=== PATIENT | female | born 1975 | race Caucasian/White ===

== ENCOUNTER 2020-05-18 11:06 | Outpatient (CLI) | payer BC, SELFPAY ==
[2020-05-18 12:36] LABS: SARS-CoV-2 Ag Negative (Negative)
== END 2020-05-18 11:07 | disposition home or self-care (01) ==
LOC: CHSLAB 11:09
PROVIDERS: PCP Internal Medicine; Visit Provider Internal Medicine
DX: Z20.828 Contact with and (suspected) exposure to other viral communicable diseases (principal)
CPT/HCPCS: 87426

== ENCOUNTER 2023-11-28 17:30 | Outpatient (CLI) | payer BC, SELFPAY ==
[2023-11-28 17:45] LABS: Hematocrit 30.5 % (35.0-49.0); Hemoglobin 8.9 g/dL (12.0-15.0); Immature Reticulocyte Fraction 28.4 % (2.0-16.52); Mean Corpuscular HGB Conc 29.2 g/dL (32-36); Mean Corpuscular Hemoglobin 20.9 pg (27.0-31.0); Mean Corpuscular Volume 71.8 fL (78.0-102.0); Mean Platelet Volume 9.3 fl (9.2-11.8); Platelet Count Result 245 K/mm3 (150-420); Red Blood Count 4.25 M/mm3 (4.20-5.40); Reticulocyte Hemoglobin Conten 19.6 pg (28.0-35.0); Reticulocyte Percent 1.67 % (0.50-1.50); Reticulocytes Absolute 0.07 M/mm3 (0.02-0.10)
[2023-11-28 18:46] LABS: Ferritin 5 ng/mL (8-252); Iron 11 ug/dL (50-170); Vitamin B12 581 pg/mL (193-986)
[2023-11-30 13:13] LABS: Red Blood Cell Folate 702 ng/mL RBC (>280)
== END 2023-11-28 17:31 | disposition home or self-care (01) ==
PROVIDERS: PCP Internal Medicine; Visit Provider Internal Medicine
DX: D64.9 Anemia, unspecified (principal)
CPT/HCPCS: 36415; 82607; 82728; 82747; 83540; 85027; 85046

== ENCOUNTER 2023-11-29 15:18 | Outpatient (CLI) | payer BC, SELFPAY ==
[2023-11-29 16:18] LABS: SPREG INTERNAL CONTROL Positive; Serum Qual hCG Negative
== END 2023-11-29 15:19 | disposition home or self-care (01) ==
LOC: CHSLAB 15:21
PROVIDERS: PCP Internal Medicine; Visit Provider Internal Medicine
DX: N91.2 Amenorrhea, unspecified (principal)
CPT/HCPCS: 36415; 84702; 84703

== ENCOUNTER 2023-12-05 13:24 | Outpatient (CLI) | payer BC, SELFPAY ==
[2023-12-05 13:42] LABS: Occult Blood Negative (Negative)
[2023-12-05 13:42] LABS: Occult Blood Negative (Negative)
[2023-12-05 13:42] LABS: Occult Blood Negative (Negative)
== END 2023-12-05 13:25 | disposition home or self-care (01) ==
PROVIDERS: PCP Internal Medicine; Visit Provider Internal Medicine
DX: D64.9 Anemia, unspecified (principal)
CPT/HCPCS: 82272

== ENCOUNTER 2023-12-08 12:51 | Outpatient (CLI) | payer BC, SELFPAY ==
[2023-12-08 13:03] LABS: Hemoglobin 9.6 g/dL (12.0-15.0)
== END 2023-12-08 12:52 | disposition home or self-care (01) ==
PROVIDERS: PCP Internal Medicine; Visit Provider Internal Medicine
DX: D64.9 Anemia, unspecified (principal)
CPT/HCPCS: 36415; 85014; 85018

== ENCOUNTER 2024-01-01 08:47 | Outpatient (CLI) | payer BC, SELFPAY ==
--- NOTE | 2024-01-01 08:55 | EST_ITS ---
Patient Info Name: Ivanna Kearney Age: 48 years : 1975 Gender: Female Ht: 65,229 in Wt: 229 lbs BSA: 34.54 m2 HR: 67 bpm BP: 119 / 92 mmHg Heart Rhythm: Sinus Rhythm Technical Quality: Good Exam Date: 01/01/2024 10:10 AM Exam Location: Echo Lab Patient Status: Outpatient Admit Date: 01/01/2024 Staff Ordering Physician: Tash Rangel MD Attending Provider: Jillian Vick NMAA Exam Type: CA stress shelbi w NM Study Info A treadmill exercise stress test was performed. History/Risk Factors Dyslipidemia: Yes Obesity: Yes Tobacco Use: Current - Every Day Summary 1. 1. Negative Aden exercise stress test for ischemic ST changes by ECG criteria. 2. 2. Reduced functional capacity, achieving 7 METs of workload. 3. 3. Appropriate HR response to exercise. 4. 4. Appropriate HR recovery at 1 minute post exercise. 5. 5. Nuclear scan to follow and will be reported separately. Please correlate with it. Protocol: Aden Stress ECG Details Stage: REST Duration (min): 0 min : 56 sec Speed (mph): 0.0 Grade (%): 0 HR (bpm): 65 SBP (mmHg): 119 DBP (mmHg): 92 METS: --- Stage: REST Duration (min): 4 min : 21 sec Speed (mph): 0.0 Grade (%): 0 HR (bpm): 72 SBP (mmHg): 119 DBP (mmHg): 92 METS: --- Stage: STAGE 1 Duration (min): 1 min : 0 sec Speed (mph): 1.7 Grade (%): 10 HR (bpm): 111 SBP (mmHg): 119 DBP (mmHg): 92 METS: --- Stage: STAGE 1 Duration (min): 2 min : 0 sec Speed (mph): 1.7 Grade (%): 10 HR (bpm): 120 SBP (mmHg): 119 DBP (mmHg): 92 METS: --- Stage: STAGE 1 Duration (min): 3 min : 0 sec Speed (mph): 1.7 Grade (%): 10 HR (bpm): 125 SBP (mmHg): 136 DBP (mmHg): 90 METS: --- Stage: STAGE 2 Duration (min): 1 min : 0 sec Speed (mph): 2.5 Grade (%): 12 HR (bpm): 134 SBP (mmHg): 136 DBP (mmHg): 90 METS: --- Stage: STAGE 2 Duration (min): 2 min : 0 sec Speed (mph): 2.5 Grade (%): 12 HR (bpm): 143 SBP (mmHg): 136 DBP (mmHg): 90 METS: --- Stage: STAGE 2 Duration (min): 3 min : 0 sec Speed (mph): 2.5 Grade (%): 12 HR (bpm): 149 SBP (mmHg): 164 DBP (mmHg): 96 METS: --- Stage: STAGE 2 Duration (min): 3 min : 30 sec Speed (mph): 2.5 Grade (%): 12 HR (bpm): 150 SBP (mmHg): 164 DBP (mmHg): 96 METS: --- Stage: RECOVERY Duration (min): 0 min : 29 sec Speed (mph): 0.0 Grade (%): 0 HR (bpm): 145 SBP (mmHg): 164 DBP (mmHg): 96 METS: --- Stage: RECOVERY Duration (min): 1 min : 29 sec Speed (mph): 0.0 Grade (%): 0 HR (bpm): 123 SBP (mmHg): 164 DBP (mmHg): 96 METS: --- Stage: RECOVERY Duration (min): 2 min : 29 sec Speed (mph): 0.0 Grade (%): 0 HR (bpm): 101 SBP (mmHg): 144 DBP (mmHg): 75 METS: --- Stage: RECOVERY Duration (min): 3 min : 29 sec Speed (mph): 0.0 Grade (%): 0 HR (bpm): 93 SBP (mmHg): 144 DBP (mmHg):
--- NOTE | 2024-01-04 19:11 | WPDCARIOSTRE ---
Nuclear Stress Test INDICATIONS Indications: Chest pain PROCEDURE Procedure Performed: Myocardial Perf Spect-Multi Procedure: Patient exercised on a standard Aden protocol and at peak exercise was injected with 30 mCi of cardiolyte. Multiple tomographic images were obtained. These are of good quality. There is evidence of a moderate size, moderate severity anterior perfusion defect with stress imaging. A separate resting images were obtained after patient was injected with 10 mCi of cardiolyte. Multiple tomographic images were obtained. There are of suboptimal quality. There is evidence of a moderate size, moderate severity anterior perfusion defect with rest imaging. CONCLUSION Conclusion: 1. Myocardial perfusion imaging demonstrating a fixed moderate size anterior perfusion defect suggestive of breast attenuation artifact. 2. No evidence of reversible ischemia. 3. Left ventriculogram demonstrates normal measured ejection fraction of 58% with no wall motion abnormalities. 4. TID score 0.82 is normal.
== END 2024-01-01 08:48 | disposition home or self-care (01) ==
LOC: CHSCARD 08:48
PROVIDERS: PCP Internal Medicine; Visit Provider Internal Medicine
DX: R07.9 Chest pain, unspecified (principal)
CPT/HCPCS: 78452; 93017; A9502

== ENCOUNTER 2024-01-04 14:22 | Outpatient (CLI) | payer BC, SELFPAY ==
--- NOTE | ~2024-01-04 | MM_ITS ---
EXAMINATION: MM screening presley BI w lito HISTORY: Screening TECHNIQUE: Craniocaudal and mediolateral oblique 3-D tomosynthesis images were obtained and synthetic 2-D images were generated. CAD analysis was submitted and interpreted. COMPARISON: No prior mammogram is available for comparison at this institution. BREAST PARENCHYMAL COMPOSITION: There are scattered areas of fibroglandular density. FINDINGS: There is no evidence of suspicious mass, calcification, or architectural distortion to sugg est malignancy in either breast. There has been no suspicious interval change. IMPRESSION: 1. No mammographic evidence of malignancy. 2. Recommend routine screening mammography in one year. BI-RADS Category 1: Negative Reviewed, dictated and finalized at location B.
== END 2024-01-04 14:23 | disposition home or self-care (01) ==
LOC: CHSIMG 14:23
PROVIDERS: PCP Internal Medicine; Visit Provider Internal Medicine
DX: Z12.31 Encounter for screening mammogram for malignant neoplasm of breast (principal)
CPT/HCPCS: 77063; 77067

== ENCOUNTER 2024-01-23 01:58 | Day surgery (SDC) | payer BC, SELFPAY ==
[2024-01-02 16:23] VITALS: BMI 38.9
[2024-01-23 08:51] VITALS: BP 131/88; PULSE 86; RESP 18; TEMP 36.4; O2SAT 97
[2024-01-23] MEDS: LACTATED RINGERS 1,000 ML 150 ML IV CONT (09:01)
--- NOTE | 2024-01-23 09:27 | WPDANESEPPF ---
Anes - Initial Pre Proc Eval Procedure: Operation Date: 01/23/24 10:00 Proposed Procedures p Esophagogastroduodenoscopy & Colonoscopy - Timo Lynch DO Date/Time: 01/23/24 09:27 Surgeon: Timo Lynch DO Pre Op Diagnosis: Severe iron deficient anemia likely do to GI loss Patient Data Age: 48 Gender: F Height: 1.64 m Weight: 101.6 kg Last Vital Signs Temp 36.4 C L 01/23/24 08:51 Pulse 86 01/23/24 08:51 Resp 18 01/23/24 08:51 BP 131/88 01/23/24 08:51 Pulse Ox 97 01/23/24 08:51 O2 Del Method Room Air 01/23/24 08:51 Allergies Allergy/AdvReac Type Severity Reaction Status Date / Time No Known Allergies Allergy Unknown Verified 01/23/24 08:50 Home Medications Medication Instructions Recorded Confirmed Type Vitamin D3 1 cap PO DAILY 01/02/24 01/02/24 History ascorbic acid (vitamin C) 1 gummy PO DAILY 01/02/24 01/02/24 History coQ10 (ubiquinol) 1 cap PO DAILY 01/02/24 01/02/24 History esomeprazole magnesium 40 mg 40 mg PO BID 01/02/24 01/02/24 History capsule,delayed release (Nexium) multivitamin 1 tablet PO DAILY 01/02/24 01/02/24 History rosuvastatin 40 mg tablet 40 mg PO HS 01/02/24 01/02/24 History trazodone 50 mg tablet 50 mg PO HS 01/02/24 01/02/24 History venlafaxine 150 mg 150 mg PO DAILY 01/02/24 01/02/24 History capsule,extended release 24 hr zinc 50 mg tablet 50 mg PO DAILY 01/02/24 01/02/24 History Patient hx anesthesia problems: none Family hx anesthesia problems: none Results Review: All pre-operative results and documents have been reviewed as part of the pre-operative evaluation. [facility] Family History Family History Mother Diabetes mellitus Hypertension Family history of elevated blood lipids Family history of mental disorder Depression Family history of diabetes mellitus in first degree relative Father Hypertension Family history of elevated blood lipids Other Family history of Alzheimer's disease Family history of allergic disorder Family history of malignant neoplasm Family history of peptic ulcer Social History Social History Smoking packs per day: 1 Smoking cigarettes per day: 20.0 Years smoked: 25 Smoking pack-years: 25.00 Smoking status: Current every day smoker Tobacco type: cigarettes Alcohol intake: never Substance use: never Substance use type: does not use Living arrangements: with family Spiritual care concerns: No Anes - Eval Final PreProcedure Day of Procedure 01/23/24 09:27 Patient weight: obese Heart: regular rate and rhythm Lungs: decreased breath sounds Airway: Mallampati scale class II Neurological: alert and oriented Last oral intake: >/= 8 hours ASA classification: III Emergent: no Anesthetic plan: proceed Anesthesia type and monitoring: general GIVS and standard monitoring Results Review: All pre-operative results and documents have been reviewed as part of the pre-operative evaluation. Informed Consent: The patient's anesthetic plan and its attendant risks and benefits were discussed with the patient/family/POA. Questions were solicited and answers provided to the satisfaction of the patient/family/POA.
--- NOTE | 2024-01-23 09:38 | PM.IMHP ---
H&P: HPI History of Present Illness Date/Time: 01/23/24 09:38 Chief Complaint: iron deficiency anemia Narrative: this is a 48-year-old woman who presents for EGD and colonoscopy. She has been having problems with iron deficiency anemia but source has been unknown. She denies any hematochezia or melena. She does have GERD and a hiatal hernia but does not notice any black stool or hematemesis. She did have a colonoscopy a few years ago which was normal. Review of Systems Review of Systems: All systems reviewed & are unremarkable except as noted in HPI and below Constitutional: Constitutional: Denies chills, Denies fever(s), Denies headache(s) and Denies weight loss Eyes: Eyes: Denies change in vision ENT: Denies dizziness, Denies headache(s), Denies neck mass and Denies throat swelling Cardiovascular: Cardiovascular: Denies chest pain, Denies lightheadedness and Denies dyspnea Respiratory: Respiratory: Denies cough, Denies dyspnea and Denies wheezing Gastrointestinal: Gastrointestinal: Denies abdominal pain, Denies change in bowel habits, Denies nausea and Denies vomiting Genitourinary: Genitourinary: Denies hematuria and Denies dysuria Musculoskeletal: Musculoskeletal: Reports as per HPI Integumentary/Breasts: Skin/Breast: Reports as per HPI Neurologic: Denies dizziness and Denies headache(s) Allergic/Immunologic: Allergic/Immunologic: Denies throat swelling and Denies wheezing PMFSH Family History Family History Mother Diabetes mellitus Hypertension Family history of elevated blood lipids Family history of mental disorder Depression Family history of diabetes mellitus in first degree relative Father Hypertension Family history of elevated blood lipids Other Family history of Alzheimer's disease Family history of allergic disorder Family history of malignant neoplasm Family history of peptic ulcer Social History Social History Smoking packs per day: 1 Smoking cigarettes per day: 20.0 Years smoked: 25 Smoking pack-years: 25.00 Smoking status: Current every day smoker Tobacco type: cigarettes Alcohol intake: never Substance use: never Substance use type: does not use Living arrangements: with family Spiritual care concerns: No Meds Home Medications and Allergies Home Medications Medication Instructions Recorded Confirmed Type Vitamin D3 1 cap PO DAILY 01/02/24 01/02/24 History ascorbic acid (vitamin C) 1 gummy PO DAILY 01/02/24 01/02/24 History coQ10 (ubiquinol) 1 cap PO DAILY 01/02/24 01/02/24 History esomeprazole magnesium 40 mg 40 mg PO BID 01/02/24 01/02/24 History capsule,delayed release (Nexium) multivitamin 1 tablet PO DAILY 01/02/24 01/02/24 History rosuvastatin 40 mg tablet 40 mg PO HS 01/02/24 01/02/24 History trazodone 50 mg tablet 50 mg PO HS 01/02/24 01/02/24 History venlafaxine 150 mg 150 mg PO DAILY 01/02/24 01/02/24 History capsule,extended release 24 hr zinc 50 mg tablet 50 mg PO DAILY 01/02/24 01/02/24 History Allergies Allergy/AdvReac Type Severity Reaction Status Date / Time No Known Allergies Allergy Unknown Verified 01/23/24 08:50 Vital Signs Vital Signs - 24 hr 01/23/24 08:51 Temperature 36.4 C L Pulse Rate 86 Respiratory Rate 18 Blood Pressure 131/88 Pulse Oximetry 97 Oxygen Delivery Room Air Exam Const: General: no acute distress and alert Orientation/consciousness: patient oriented x3 HENMT: Head: normocephalic and atraumatic Ears: hearing grossly normal bilaterally Face/Nose/Sinus: Normal nares present Mouth: Yes Normal oral and palatal mucosa present Eyes: Periorbital: periorbital findings normal Sclera: sclerae normal EOM: EOMs intact bilaterally Neck: Neck: normal visual inspection, no lymphadenopathy and trachea midline Chest: Chest palpation & inspection: normal inspect
--- NOTE | 2024-01-23 10:33 | SUR.OPER ---
EGD START TIME 1008, END TIME 1011. COLONOSCOPY START TIME 1018, END TIME 1032.
[2024-01-23 10:36] VITALS: BP 121/76; PULSE 77; RESP 22; O2SAT 92
[2024-01-23 10:46] VITALS: BP 125/81; PULSE 79; RESP 20; O2SAT 97
[2024-01-23 10:56] VITALS: BP 126/82; PULSE 77; RESP 22; O2SAT 97
== END 2024-01-23 11:09 | disposition home or self-care (01) ==
PROVIDERS: PCP Internal Medicine; Visit Provider Surgery
PROC: 0DJ08ZZ Inspection of Upper Intestinal Tract, Via Natural or Artificial Opening Endoscopic (ICD-10-PCS; CPT 43235; principal; 2024-01-23 10:00)
DX: D50.9 Iron deficiency anemia, unspecified (principal); K62.1 Rectal polyp; F17.210 Nicotine dependence, cigarettes, uncomplicated; E66.9 Obesity, unspecified; Z68.37 Body mass index [BMI] 37.0-37.9, adult; K44.9 Diaphragmatic hernia without obstruction or gangrene
CPT/HCPCS: 45380; 43235; 88305; J2704; J7120

== ENCOUNTER 2024-02-27 12:52 | Outpatient (CLI) | payer BC, SELFPAY ==
[2024-02-27 13:12] LABS: Basophils Absolute Auto 0.02 K/mm3 (0.00-0.10); Basophils Percent Auto 0.3 % (0.0-1.0); Eosinophils Absolute Auto 0.13 K/mm3 (0.02-0.50); Eosinophils Percent Auto 1.7 % (1.0-6.0); Hematocrit 37.9 % (35.0-49.0); Hemoglobin 11.9 g/dL (12.0-15.0); Immature Granulocyte Absolute 0.03 K/mm3 (0.00-0.00); Immature Granulocyte Percent A 0.4 % (0.0-0.0); Lymphocytes Absolute Auto 2.13 K/mm3 (1.10-4.50); Lymphocytes Percent Auto 27.1 % (18.0-42.0); Mean Corpuscular HGB Conc 31.4 g/dL (32-36); Mean Corpuscular Hemoglobin 25.2 pg (27.0-31.0); Mean Corpuscular Volume 80.3 fL (78.0-102.0); Mean Platelet Volume 9.9 fl (9.2-11.8); Monocytes Absolute Auto 0.61 K/mm3 (0.10-0.90); Monocytes Percent Auto 7.8 % (2.0-11.0); Neutrophils Absolute Auto 4.95 K/mm3 (1.70-7.20); Neutrophils Percent Auto 62.7 % (50.0-70.0); Platelet Count Result 210 K/mm3 (150-420); Red Blood Count 4.72 M/mm3 (4.20-5.40); Red Cell Distribution Width 22.3 % (11.6-14.4); White Blood Count 7.9 K/mm3 (4.8-10.8)
[2024-02-27 13:39] LABS: Ferritin 7 ng/mL (8-252); Iron 25 ug/dL (50-170)
== END 2024-02-27 12:53 | disposition home or self-care (01) ==
LOC: CHSLAB 12:55
PROVIDERS: PCP Internal Medicine; Visit Provider Internal Medicine
DX: D50.9 Iron deficiency anemia, unspecified (principal)
CPT/HCPCS: 36415; 82728; 83540; 85025

== ENCOUNTER 2024-03-08 08:56 | Outpatient (CLI) | payer BC, SELFPAY ==
[2024-03-08] MEDS: IRON SUCROSE COMPLEX 400 MG, IRON SUCROSE COMPLEX 100 MG in SODIUM CHLORIDE 0.9% IV 250 ML 62.5 MG IVPB (09:43)
[2024-03-08 16:16] VITALS: BP 126/78; PULSE 84; RESP 16; TEMP 36.5; O2SAT 96; BMI 38.7
== END 2024-03-08 08:57 | disposition home or self-care (01) ==
PROVIDERS: PCP Internal Medicine; Visit Provider Internal Medicine
DX: D50.9 Iron deficiency anemia, unspecified (principal)
CPT/HCPCS: 96365; 96366; J1756; J7050

== ENCOUNTER 2024-03-22 08:53 | Outpatient (CLI) | payer BC, SELFPAY ==
[2024-03-22] MEDS: IRON SUCROSE COMPLEX 500 MG in SODIUM CHLORIDE 0.9% IV 250 ML 62.5 MG IVPB (09:43)
[2024-03-22 09:45] VITALS: BP 134/78; PULSE 98; RESP 18; TEMP 36.4; O2SAT 97; BMI 38.7
== END 2024-03-22 08:54 | disposition home or self-care (01) ==
PROVIDERS: PCP Internal Medicine; Visit Provider Internal Medicine
DX: D50.9 Iron deficiency anemia, unspecified (principal)
CPT/HCPCS: 96365; 96366; J1756; J7050

== ENCOUNTER 2024-10-23 14:31 | Outpatient (CLI) | payer BC, SELFPAY ==
--- NOTE | ~2024-10-23 | US_ITS ---
EXAMINATION: US venous doppler [facility] DATE: 10/23/2024 15:01 INDICATION: Bilateral lower extremity edema TECHNIQUE: Grayscale ultrasound images without and with compression and Doppler ultrasound images of the bilateral lower extremity veins were obtained. COMPARISON: None. FINDINGS: The visualized portions of right common femoral vein, profunda (deep) femoral vein, femoral vein, pop liteal vein, peroneal veins, posterior tibial veins, and greater saphenous vein outflow are patent. Although not a dedicated reflux examination, significant reflux was incidentally noted of the right p opliteal vein measuring 3.3 seconds. The visualized portions of left common femoral vein, profunda femoral vein, femoral vein, popliteal v ein, peroneal veins, posterior tibial veins, and greater saphenous vein outflow are patent. IMPRESSION: 1. No deep venous thrombosis. Reviewed, dictated and finalized at location A.
--- OUTSIDE RECORDS SUMMARY | 2024-10-23 14:36 | XMS_ITS | Referral Summary ---
Author Organization [facility] Address [address] [place] [address] Care Team Providers Care Fashion Consultant Sales Name Role Phone Tash Rangel MD Primary Care Provider + [phone] Orion Soriano MD Unavailable [phone] Allergies No known active allergies Medications venlafaxine XR (EFFEXOR-XR) 75 mg 24 hr capsule Take 75 mg by mouth daily 8 Active rosuvastatin (CRESTOR) 40 mg tablet Take 40 mg by mouth daily. Active traMADoL (ULTRAM) 50 mg tablet Take 1 tablet (50 mg total) by mouth every 6 (six) hours as needed for pain 21 tablet 1 Active Additional Information Patient not taking.Reported on 06/21/[address] (NexIUM) 20 mg capsule Take 20 mg by mouth 2 (two) times a day Active famotidine (PEPCID) 40 mg tabletIndicatio ns:Laryngophary ngeal reflux (LPR) Take 1 tablet (40 mg total) by mouth nightly 90 tablet 3 1 Active Active Problems Problem Noted Date Diagnosed Date Seasonal allergic rhinitis due to pollen 021 Assessment & Plan (04/05/2021 3:25 PM CDT): Will obtain Dr. Dong notes Continue Nexium 20 mg twice daily Start Pepcid 40 mg at bedtime Referral to Sleep Medicine for Obstructive sleep apnea Nasal saline spray (Simply saline, Little Remedies, [place], [place]) 2 second sprays or 2 squeezes into each nostril while looking down over the sink, do not need to sniff in. Flonase 2 sprays into each nostril while looking down over the sink, do not sniff in or blow nose after use for at least 30 minutes BALJINDER (obstructive sleep apnea) 04/05/2021 Assessment & Plan (04/05/2021 3:33 PM CDT): Referral to Sleep Medicine for Obstructive sleep apnea Laryngopharyngeal reflux (LPR) 04/05/2021 Assessment & Plan (04/05/2021 3:33 PM CDT): Continue Nexium 20 mg twice daily Start Pepcid 40 mg at bedtime LPR discussed and Handout provided Abdominal pain 02/27/2021 Choledocholithiasis 02/25/2021 Overview (02/27/2021): Added automatically from request for surgery [id number] Social History Tobacco Use Types Packs/Day Years Used Date Smoking Tobacco: Heavy Smoker Cigarettes 0.5 20 Smokeless Tobacco: Never Tobacco Cessation:Counseling Given: No Comments:Smoking History Packs/day: 10 Cigarettes Alcohol Use Standard Drinks/Week Comments No 0 (1 standard drink = 0.6 oz pur e alcohol) AUDIT-C Answer Date Recorded Q1: How often do you have a drink containing alc ohol? Never 02/23/2021 Average Number of Drinks Not on file 021 Frequency of Binge Drinking Not on file 12/2020 Comments No Sex and Gender Information Value Date Recorded Sex Assigned at Not on file Legal Sex Female 11:44 AM VESSEL OPERATOR Gender Identity Not on file Sexual Orientation Not on file Last Filed Vital Signs Vital Sign Reading Time Taken Comments Blood Pressure 125/84 08/02/2021 1:51 PM VESSEL OPERATOR Pulse 82 08/02/2021 1:51 PM VESSEL OPERATOR Temperature 36.6 C (97.8 F) 08/02/2021 1:51 PM VESSEL OPERATOR Respiratory Rate 18 08/02/2021 1:51 PM VESSEL OPERATOR Oxygen Saturation 99% 08/02/2021 1:51 PM VESSEL OPERATOR Inhaled Oxygen Concentration - - Weight 98.9 kg (218 lb) 08/02/2021 1:51 PM VESSEL OPERATOR Height 165.1 cm (5' 5 ) 08/02/2021 1:51 PM VESSEL OPERATOR Body Mass Index 36.28 08/02/2021 1:51 PM VESSEL OPERATOR Plan of Treatment Not on file Medical Devices Implanted Type Area House Steward/Stewardess Device Identifier Shelf Expiration Date Model / Serial / Lot [employer] [id number] Cotton-Mares 8.5fr 7cm Taper Tip Guidewire Proximal Distal Flap - [id number] Implanted:Qty: 1 on 02/23/2021 by Orion Soriano MD at [facility] Stent N/A: Bile Duct [employer] 12/12/2023 [id number] / / [id number] Insurance [place] [place] [place] BLUE [employer] [facility] Advance Directives For more information, please contact: [phone] * Full Code (Latest Code Status on File) Date Activated Date Inactivated Comments 02/27/2021 10:11 AM 02/28/2021 8:20 PM * Full Code Date Activated Date Inactivated Comments 02/23/2021 9:59 AM 02/27/2021 4:41 AM * Full Code Date Activated Date Inactivated Comments 02/23/2021 9:59 AM 02/23/2021 9:59 AM Care Teams Fashion Consultant Sales Relationship Specialty Start Date End Date Tash Rangel MD [address] [place] [address] PCP - General 01/21/21 [place] [address] [place] [address] Consulting Physician Gastroenterology 02/28/21
--- OUTSIDE RECORDS SUMMARY | 2024-10-23 14:36 | XMS_ITS | Clinical Summary ---
Author Organization [facility] Address [address] [place] [address] Phone Care Team Providers Care Bank And Savings Securities Trader Name Role Phone Tash Rangel MD Primary Care Provider [phone] Allergies No known active allergies Medications atorvastatin (LIPITOR) 40 MG Tablet Take 40 mg by mouth daily. 1 7 Active ALPRAZolam (XANAX) 0.5 MG Tablet Take 1 Tab by mouth 3 times daily as needed. 15 Tab 7 Active Additional Information Patient not taking.Reported on 10/30/2021 rosuvastatin (CRESTOR) 40 MG Tablet Take 40 mg by mouth daily. Active venlafaxine (EFFEXOR-XR) 75 MG CAPSULE SR 24 HR Take 75 mg by mouth daily. Active Multiple Vitamins-Minera ls (MULTIVITAMIN PO) Take by mouth daily. Active Esomeprazole Magnesium (NEXIUM PO) Take by mouth. Act jerica predniSONE (DELTASONE) 10 MG TabletIndicatio ns:Bug bite, initial encounter Take 4 tab PO daily x 2 days, 3 tab PO daily x 2 days, 2 tab PO daily x 2 day, 1 tab PO daily x 2 days. 20 Tablet 2 Active Additional Information Patient not taking.Reported on 11/24/2021 amoxicillin-cla vulanate (AUGMENTIN) 875-125 MG Tablet TAKE 1 TABLET BY MOUTH EVERY 12 HOURS 2 Active Active Problems No known active problems Family History Medical History Relation Name Comments Heart Attack Father Hypertension Father Cancer Maternal Aunt breast Alzheimer's Disease Maternal Grandmother Diabetes Mother High Cholesterol Mother Hypertension Mother Cancer Paternal Grandfather possibl y throat Relation Name Status Comments Father Alive Maternal Aunt Maternal Grandmother Mother Alive Paternal Grandfather Son sensory neuro h earing loss, park larios Social History Tobacco Use Types Packs/Day Years Used Date Smoking Tobacco: Every Day Cigarettes 0.5 20 Smokeless Tobacco: Never Alcohol Use Standard Drinks/Week Comments No 0 (1 standard drink = 0.6 oz pur e alcohol) Sexually Active Control Partners Comments Not Currently Comments No Sex and Gender Information Value Date Recorded Sex Assigned at Not on file Legal Sex Female 10:03 PM CDT Gender Identity Not on file Sexual Orientation Not on file Occupation Industry Job Start Date Job End Date accounting Not on file Not on file Not on file Last Filed Vital Signs Vital Sign Reading Time Taken Comments Blood Pressure 124/82 11/24/2021 4:48 PM CDT Pulse 94 11/24/2021 4:48 PM CDT Temperature 37.1 C (98.8 F) 11/24/2021 4:48 PM CDT Respiratory Rate 13 11/24/2021 4:48 PM CDT Oxygen Saturation 96% 11/24/2021 4:48 PM CDT Inhaled Oxygen Concentration - - Weight 95.3 kg (210 lb) 10/30/2021 12:07 PM CDT Height 165.1 cm (5' 5 ) 08/23/2018 9:30 AM MIXER SLAGMAN Body Mass Index 34.95 08/23/2018 9:30 AM MIXER SLAGMAN Plan of Treatment Health Maintenance Due Date Last Done Comments Hepatitis C Virus (HCV) Screening 1975 Hepatitis B Immunization (1 of 3 - 19+ 3-dose series) 1992 Cologuard 2023 Immunochemical Fecal Occult Blood 2023 Pneumococcal Immunization (5 0+ years) (1 of 1 - PCV) 2023 Zoster Immunization (1 of 2) 2023 Influenza Immunization (#1) 02/18/202403/19, 05/17/2017 SARS-COV-2 Immunization (3 - 2023- season) 2024 02/03/2021, 01/06/2021 Colonoscopy 08/23/2028 08/23/2018 Colorectal Cancer Screening 08/23/2028 Respiratory Syncytial Virus (RSV) Immunization (Adult) (1 - 1-dose 75+ series) 2048 08/23/2018 DTaP/Tdap/Td Immunization Discontinued 07/06/2018 TdaP Immunization Completed 07/06/2018 Meningococcal Immunization (ACWY) Aged Out No longer eligible based on patient's age to complete this topic Rotavirus Immunization Aged Out No lo nger eligible based on patient's age to complete this topic Insurance [facility] Care Teams Bank And Savings Securities Trader Relationship Specialty Start Date End Date Tash Rangel MD [address] [place] [address] PCP - General Internal Medicine 04/29/17
--- OUTSIDE RECORDS SUMMARY | 2024-10-23 14:36 | XMS_ITS | Clinical Summary ---
Author Organization [facility] Address [address] [place] [address] Care Team Providers Care Art Gilder Name Role Phone Tash Rangel MD Primary Care Provider + [phone] Orion Soriano MD Unavailable [phone] Allergies No known active allergies Medications venlafaxine [...] Nasal saline spray (Simply saline, Little Remedies, [place], [place]) 2 second sprays or 2 squeezes into [...] (02/27/2021): Added automatically from request for surgery [id number] Surgical History Surgery Date Site/Laterality Comments OTHER SURGICAL HISTORY 06/19/2006 - 06/18/2007 spinal decompression OTHER SURGICAL HISTORY 06/19/2006 - 06/18/2007 lumbar fusion L5-S2 CERVICAL FUSION 06/19/2008 - 06/18/2009 cervical fusion OTHER SURGICAL HISTORY 06/19/1993 - 06/18/1994 : induced OTHER SURGICAL HISTORY 06/19/1993 - 06/18/1994 : 40 hr labor OTHER SURGICAL HISTORY 06/19/1995 - 06/18/1996 : 4 1/2 hr labor OTHER SURGICAL HISTORY 06/19/2002 - 06/18/2003 : ectopic CHOLECYSTECTOMY Cholecystectomy BRAIN SURGERY TUBAL LIGATION Medical History Medical History Date Comments Hx Other Medical 2002 ectopic pregnan cy Hx Other Medical 1993 ; Outc ome: Unknown sex Hx Other Medical 1993 ; Outc ome: 40 week 7 lb(s) 8 oz Male Hx Other Medical 1995 ; Outc ome: 40 week 7 lb(s) 1 oz Male Hx Other Medical 2002 ; Outc ome: Unknown sex Arnold-Chiari malformation (HCC) GERD (gastroesophageal reflux disease) Hyperlipidemia Hiatal hernia PONV (postoperative nausea and vomiting) Depression Family History Medical History Relation Name Comments Diabetes Mother Diabetes mellit us; Hyperlipidemia Mother Hyperlipidemi a; Hypertension Mother Hypertension; Cholecystitis Other Diabetes Other Hypertension Other Other Sister female or sexua l problems; Relation Name Status Comments Mother Other Sister Social History Tobacco Use Types Packs/Day Years [...] on file Legal Sex Female 11:44 AM PORTFOLIO MGR Gender Identity Not on file Sexual Orientation Not on file Obstetrics History Last Filed Vital Signs Vital Sign Reading Time Taken Comments Blood Pressure 125/84 08/02/2021 1:51 PM PORTFOLIO MGR Pulse 82 08/02/2021 1:51 PM PORTFOLIO MGR Temperature 36.6 C (97.8 F) 08/02/2021 1:51 PM PORTFOLIO MGR Respiratory Rate 18 08/02/2021 1:51 PM PORTFOLIO MGR Oxygen Saturation 99% 08/02/2021 1:51 PM PORTFOLIO MGR Inhaled Oxygen Concentration - - Weight 98.9 kg (218 lb) 08/02/2021 1:51 PM PORTFOLIO MGR Height 165.1 cm (5' 5 ) 08/02/2021 1:51 PM PORTFOLIO MGR Body Mass Index 36.28 08/02/2021 1:51 PM PORTFOLIO MGR Plan of Treatment Health Maintenance Due Date Last Done Comments Breast Cancer Screening-Mammogram 1975 Cervical Cancer Screening 1975 Colon Cancer Screening-Colonoscopy 1975 Depression Screening 1975 Hepatitis C Screening 1975 Hepatitis B Screening 1991 Regular Well Visit/Exam 18-64 1991 Pneumococcal vaccine <65 (1 of 2 - PCV) 1992 Zoster Vaccine (1 of 2) 2023 Influenza Vaccine (#1) 2024 04/03/2019, 2016 DTaP/Tdap/Td Vaccine (2 - Td or Tdap) 07/06/2028 01/ Medical Devices Implanted Type Area It Compliance Analyst Device Identifier Shelf Expiration Date Model / Serial / Lot [employer] [id number] Cotton-Mares 8.5fr 7cm Taper Tip Guidewire Proximal Distal Flap - [id number] Implanted:Qty: 1 on 02/23/2021 by Orion Soriano MD at [facility] Stent N/A: Bile Duct [employer] 12/12/2023 [id number] / / [id number] Insurance BLUE ACC[place] CHOICE [place] CHO[place] CHO[place] Advance Directives For more information, please contact: [phone] * Full Code (Latest Code Status on File) Date Activated Date Inactivated Comments 02/27/2021 10:11 AM 02/28/2021 8:20 PM * Full Code Date Activated Date Inactivated Comments 02/23/2021 9:59 AM 02/27/2021 4:41 AM * Full Code Date Activated Date Inactivated Comments 02/23/2021 9:59 AM 02/23/2021 9:59 AM Care Teams Art Gilder Relationship Specialty Start Date End Date Tash Rangel MD [address] [place] [address] PCP - General 01/21/21 [place] [address] [place] [address] Consulting Physician Gastroenterology 02/28/21
--- OUTSIDE RECORDS SUMMARY | 2024-10-23 14:36 | XMS_ITS | Patient Health Record ---
Author Organization [facility] Address [address] [place] [address] Care Team Providers Care Watch And Clock Maker And Repairer Name Role Phone Juan Carlos PEÑALOZA, Tash Primary Care Provider Kavon GRACE DRAFTER AUTOMOTIVE DESIGN LAYOUT, MEJIA Unavailable [phone] ALLERGIES No Known Allergies REASON FOR REFERRAL No Information MEDICATIONS Medication SIG (Take, Route, Frequency, Duration) Notes Start Date End Date Status Amitriptyline HCl 25 MG TAKE 1 TABLET BY MOUTH EVERYDAY AT BEDTIME for 90 Active LORazepam 2 MG/ML 1 ml as needed Orall y Twice a day Active NexIUM 20 MG 1 capsule Orally Onc e a day Active Rosuvastatin Calcium 10 MG 1 tablet Oral ly Once a day Active Effexor XR 75 MG 1 capsule with food Orally Once a day Active SOCIAL HISTORY Tobacco Use: Social History Observation Description Date Details (start date - stop date) Current Smoker NA - NA Sex Assigned At : Social History Observation Description Sex Assigned At Unknown Tobacco Use/Smoking Question Answer Notes Are you a current smoker How often do you smoke cigarettes? every day How many cigarettes a day do you smoke? 6-10 PLAN OF TREATMENT No Information Insurance Providers Payer Name Payer Address Payer Phone Subscriber Number Group Number Insured Name Patient Relationship to Insured Coverage Start Date Coverage End Date [facility] P[facility] [address] [place], [place] [phone] [id number] Ivanna Kearney Self - patient is the insured MEDICAL (GENERAL) HISTORY Medical History History ICD Code chiari malformation 1 anxietty depression GERD gallbladder dysfunction pancreatitis migraines hyperlipidemia Surgical History Surgery Date(Month/Year) laminectomy arnold chiari malformation decompression 2006 ERCP Anthony wtih biliary stenting 02/23 tubal ligation ectopic preg gallbladder removal 2018
--- OUTSIDE RECORDS SUMMARY | 2024-10-23 14:36 | XMS_ITS | Clinical Summary ---
Author Organization [facility] Address [facility] [address] [place] [address] Care Team Providers Care Reference Archivist Name Role Phone Unavailable Primary Care Provider Unavailabl e Social History Tobacco Use Types Packs/Day Years Used Date Smoking Tobacco: Never Assessed Comments Unknown Sex and Gender Information Value Date Recorded Sex Assigned at Not on file Legal Sex Female 5:06 PM CDT Gender Identity Not on file Sexual Orientation Not on file Plan of Treatment Health Maintenance Due Date Last Done Comments Cervical Cancer Screening Pa p Smear (Age 30 to 64) Every 3 Years 1973 Colorectal Cancer Screening Colonoscopy (10 Years) 1973 Annual Physical 1976 Hepatitis C 1991 DTaP, Tdap and Td Vaccines ( 1 - Tdap) 1992 Hepatitis B Vaccines (1 of 3 - 19+ 3-dose series) 1992 Cervical Cancer Screening Pa p with HPV Testing (Age 30 to 64) Every 5 Years 2003 Cervical Cancer Screening with HPV 2003 Mammogram Screening 2013 Pneumococcal Vaccine: 50+ Ye ars (1 of 1 - PCV) 2023 Zoster Vaccines (1 of 2) 2023 COVID-19 Vaccine ( - 2023-2 5 season) 2024 Meningococcal B Vaccine Aged Out No l onger eligible based on patient's age to complete this topic Meningococcal Vaccine Aged Out No kinsey rolando eligible based on patient's age to complete this topic RSV Immunizations Under 20 Months Aged Out No longer eligible based on patient's age to complete this topic
== END 2024-10-23 14:32 | disposition home or self-care (01) ==
PROVIDERS: PCP Internal Medicine; Visit Provider Internal Medicine
DX: M79.89 Other specified soft tissue disorders (principal)
CPT/HCPCS: 93970

== ENCOUNTER 2025-06-17 18:57 | Emergency (ER) | payer BC, SELFPAY ==
--- OUTSIDE RECORDS SUMMARY | 2025-06-17 18:59 | XMS_ITS ---
Author Organization [facility] Address [address] [place] [address] Phone Care Team Providers Care Torpedo Shooter Name Role Phone MISAEL SANTOS DO Unavailable [phone] Plan of Treatment Findings Encounter Date Ordered patient to call if jovanna cantu develops COVID SICK VISIT- ESTABLISHED PATIENT with LOIS N [facility] [employer] 06/14/2023 Last Documented On 3 10:47AM ; [facility] Ordered return to the clinic if condition worsens or new symptoms arise COVID SICK VISIT- ESTABLISHED PATIENT with LOIS N [facility] [employer] 06/14/2023 Last Documented On 3 10:47AM ; [facility] The options include close observation SI CK VISIT with MARCELA A [facility] 05/10/2020 Last Documented On 0 3:08PM ; [facility] Watch for signs/symptoms of infection, return to the clinic if seen SICK VISIT with MARCELA Saravia [facility] 05/10/2020 Last Documented On 0 3:08PM ; [facility] Ordered Clinical summary pro vided to patient ENDOMETRIAL BIOPSY with ROLAND HOOK RN ANA CRISTINA 11/21/2016 Last Documented On 7 8:39AM ; [facility] Ordered Clinical summary pro vided to patient NEW BLOGS MANAGER EXAM with ROLAND HOOK RN ANA CRISTINA 10/20/2016 Last Documented On 7 8:52AM ; [facility] Ordered weight loss diet NEW BLOGS MANAGER EXAM with ROLAND HOOK RN ANA CRISTINA 10/20/2016 Last Documented On 7 8:52AM ; [facility] Instructions to patient Watch for signs/symptoms of infection, return to the clinic if seen Last Documented On 0 3:02PM ; [facility] Instructed to call if excess jerica bleeding or abdominal/pelvic pain Last Documented On 7 8:18AM ; [facility] Patient may take Motrin OTC PRN as directed Last Documented On 7 8:18AM ; [facility] Instructions for patient ER if dizzy, vomiting or light-headed due to heavy bleeding Last Documented On 7 9:30AM ; [facility] Instructions for patient ER if bleeding through reg. sized pad/tampon < 1 hour Last Documented On 7 9:30AM ; [facility] Instructions for patient : p atient is to keep a menstrual diary to help with further evaluation and treatment Last Documented On 7 9:30AM ; [facility] Intervention and counseling on cessation of tobacco use Last Documented On 7 9:30AM ; [facility] Lose weight Last Documented On 7 8:58AM ; [facility] Instructed to call if excess jerica bleeding or abdominal/pelvic pain Last Documented On 7 8:58AM ; [facility] Instructions For Patient: Mo nthly Self Breast Exam Last Documented On 7 8:58AM ; [facility] Recommend diet and exercise at least 30 min three times per week Last Documented On 7 8:58AM ; [facility] Education and Decision Aids were provided during visit for: INFORMED CONSENT DISCUSSION: Endometrial biopsy was discussed in detail including discomfort, insufficient specimen with need to repeat test, and rare incidence of uterine perforation. Patient expressed understanding of the above and consented to the procedure Last Documented On 7 8:18AM ; [facility] Discussed smoking and drug u se Last Documented On 7 8:58AM ; [facility] Patient education about self -examination of breasts Last Documented On 7 9:30AM ; [facility] Patient Education: Daily patrick cium and vitamin D Last Documented On 7 8:58AM ; [facility] Assessments Includes: Assessments for all patient encounters Findings Encounter Date Acute sinusitis COVID SICK VISIT- ES TABLISHED PATIENT with LOIS Merida [facility] [employer] 06/14/2023 Last Documented On 3 10:47AM ; [facility] Assessment of cough COVID SICK VISIT- ES TABLISHED PATIENT with LOIS Merida [facility] [employer] 06/14/2023 Last Documented On 3 10:47AM ; [facility] Acute sinusitis SICK VISIT with MARCELA Saravia [facility] 05/10/2020 Last Documented On 0 3:08PM ; [facility] Exposure to a viral disease SICK VISIT with TRAC IE Manjit [facility] 05/10/2020 Last Documented On 0 3:08PM ; [facility] Benign endometrial hyperplasia PELVIC W/TVT with ROLAND HOOK RN ANA CRISTINA 04/18/2017 Last Documented On 7 1:03PM ; [facility] Endometrial hyperplasia CHART UPDATE with ROLAND HOOK RN ANA CRISTINA 11/23/2016 Last Documented On 7 2:59PM ; [facility] Postmenopausal bleeding CHART UPDATE with ROLAND HOOK RN ANA CRISTINA 11/23/2016 Last Documented On 7 2:59PM ; [facility] Endometrial hyperplasia ENDOMETRIAL BIOPSY with ROLAND HOOK RN ANA CRISTINA 11/21/2016 Last Documented On 7 8:39AM ; [facility] Postmenopausal bleeding ENDOMETRIAL BIOPSY with ROLAND HOOK RN ANA CRISTINA 11/21/2016 Last Documented On 7 8:39AM ; [facility] Mastodynia NEW BLOGS MANAGER EXAM with ROLAND HOOK RN ANA CRISTINA 10/20/2016 Last Documented On 7 8:52AM ; [facility] NORMAL FEMALE EXAM NEW BLOGS MANAGER EXAM with ROLAND CHEN RN ANA CRISTINA 10/20/2016 Last Documented On 7 8:52AM ; [facility] Postmenopausal bleeding NEW BLOGS MANAGER EXAM with ROLAND HOOK RN ANA CRISTINA 10/20/2016 Last Documented On 7 8:52AM ; [facility] Screen malignant neoplasm cervix NEW BLOGS MANAGER EXAM with ROLAND HOOK RN ANA CRISTINA 10/20/2016 Last Documented On 7 8:52AM ; [facility] Instructions Includes: Instructions for all patient encounters Instructions to patient Watch for signs/symptoms of infection, return to the clinic if seen Last Documented On 0 3:02PM ; [facility] Instructed to call if excess jerica bleeding or abdominal/pelvic pain Last Documented On 7 8:18AM ; [facility] Patient may take Motrin OTC PRN as directed Last Documented On 7 8:18AM ; [facility] Instructions for patient ER if dizzy, vomiting or light-headed due to heavy bleeding Last Documented On 7 9:30AM ; [facility] Instructions for patient ER if bleeding through reg. sized pad/tampon < 1 hour Last Documented On 7 9:30AM ; [facility] Instructions for patient : p atient is to keep a menstrual diary to help with further evaluation and treatment Last Documented On 7 9:30AM ; [facility] Intervention and counseling on cessation of tobacco use Last Documented On 7 9:30AM ; [facility] Lose weight Last Documented On 7 8:58AM ; [facility] Instructed to call if excess jeirca bleeding or abdominal/pelvic pain Last Documented On 7 8:58AM ; [facility] Instructions For Patient: Mo nthly Self Breast Exam Last Documented On 7 8:58AM ; [facility] Recommend diet and exercise at least 30 min three times per week Last Documented On 7 8:58AM ; [facility] Education and Decision Aids were provided during visit for: INFORMED CONSENT DISCUSSION: Endometrial biopsy was discussed in detail including discomfort, insufficient specimen with need to repeat test, and rare incidence of uterine perforation. Patient expressed understanding of the above and consented to the procedure Last Documented On 7 8:18AM ; [facility] Discussed smoking and drug u se Last Documented On 7 8:58AM ; [facility] Patient education about self -examination of breasts Last Documented On 7 9:30AM ; [facility] Patient Education: Daily patrick cium and vitamin D Last Documented On 7 8:58AM ; [facility] Medical Equipment - Implanted Devices Includes: Current and historical Devices No Medical Equipment Recorded Medications Includes: Current and historical Medications Current Medications (continue as prescribed) Amoxicillin-Pot Clavulanate 875-125 MG Oral Tablet 06/14/2023 Provider: LOIS CARRASCO Diagnosis: Acute sinusitis, unspecified One tablet twice a day Last Documented On 10:52AM By Lois CARRASCO ; [facility] traZODone HCl 50 MG Oral Tablet 05/25/2023 Provider: ELZBIETA PRINCE MD Diagnosis: Last Documented On 06/14/2023 10:27AM By Francy Castillo ; [facility] Venlafaxine HCl ER 150 MG Or al Capsule Extended Release 24 Hour 04/06/2023 Provider: ELZBIETA PRINCE MD Diagnosis: Last Documented On 06/14/2023 10:27AM By Farncy Castillo ; [facility] Atorvastatin Calcium 40MG Oral Tablet 10/20/2016 Pro vider: Diagnosis: Last Documented On 10/20/2016 8:39AM By YORDY NEGRON MA ; [facility] Lansoprazole 30MG Oral Capsule Delayed Release 017 Provider: Diagnosis: Last Documented On 10/20/2016 8:40AM By YORDY NEGRON MA ; [facility] Past Medications on file Doxycycline Hyclate 100 MG Oral Tablet 05/10/2020 - 06/14/2023 Provider: MARCELA CARRASCO Diagnosis: Acute frontal sinusitis, unspecified One tablet twice a day Last Documented On 3 10:44AM By Lois CARRASCO ; [facility] MedroxyPROGESTERone Acetate 10MG Oral Tablet 11/23/2016 - 01/22/2017 Provider: ROLAND TATE BC Diagnosis: Endometrial hyperplasia, unspecified One tablet daily ONE TAB DEBORAH LY FIRST 10 DAYS OF EACH MONTH WITH FOOD Last Documented On 7 3:00PM By ROLAND TATE-BC ; [facility] Medications Administered Includes: Administered Medications in patient's chart No Administered Medications Recorded Results Includes: Results from 06/17/2024 through 06/17/2025 No Results Recorded For Specified Dates History of Present Illness History of Present Illness not supported for this document type No History of Present Illness Recorded Social History Description Last Updated Current smoker 06/14/2023 Last Documented On 3 10:47AM ; [facility] No travel 05/10/2020 Last Documented On 0 3:08PM ; [facility] Personal history 11/21/2016 Last Documented On 7 8:39AM ; [facility] Sexually active 11/21/2016 Last Documented On 7 8:39AM ; [facility] Smoking Status Unknown Procedures and Surgical History Surgical History Last Updated History of tubal ligation 11/21/2016 Last Documented On 7 8:39AM ; [facility] Surgical / procedural histor y L5-S1 fusion ~C3-C4 fusion ~Arnold chiari decompression 10/20/2016 Last Documented On 7 8:52AM ; [facility] Medical History Includes: Medical History in patient's chart Description Last Updated Date COVID symptoms started: 06/09/2023 06/14/2023 Last Documented On 3 10:47AM ; [facility] No Contact with and (Suspected) exposure to COVID-19 06/14/2023 Last Documented On 3 10:47AM ; [facility] No fall 06/14/2023 Last Documented On 3 10:47AM ; [facility] Exposure to a contagious disease 020 Last Documented On 0 3:08PM ; [facility] Sexually active 11/21/2016 Last Documented On 7 8:39AM ; [facility] History of Pap smear done 10/20/2016 06/0 10/2016 Last Documented On 7 8:39AM ; [facility] LMP: 2015 11/21/2016 Last Documented On 7 8:39AM ; [facility] Result: abnormal (+)HPV 11/21/2016 Last Documented On 7 8:39AM ; [facility] History of chronic reflux esophagitis Last Documented On 7 8:52AM ; [facility] History of hyperlipidemia 10/20/2016 Last Documented On 7 8:52AM ; [facility] ACM type 1 10/20/2016 Last Documented On 7 8:52AM ; [facility] Aborta 2 10/20/2016 Last Documented On 7 8:52AM ; [facility] 4 10/20/2016 Last Documented On 7 8:52AM ; [facility] Para 2 10/20/2016 Last Documented On 7 8:52AM ; [facility] Status post tubal ligation 10/20/2016 Last Documented On 7 8:52AM ; [facility] Family History Includes: Family History in patient's chart Description Last Updated Maternal aunt's history of malignant fem adelina breast neoplasm Mat Aunt 10/20/2016 Last Documented On 7 8:52AM ; [facility] Maternal history of diabetes mellitus Mo ther and father 10/20/2016 Last Documented On 7 8:52AM ; [facility] Review of Systems Review of Systems not supported for this document type No Review of Systems Recorded Mental Status No Mental Status Recorded Functional Status No Functional Status Recorded Physical Exam Physical Exam not supported for this document type No Physical Exam Recorded Allergies Includes: Active, inactive, and resolved Allergies No Known Allergies Insurance Includes: Active Insurance Policies Plan Name Member ID Group # Subscriber Relationship Effect jerica Dates 1 - [facility] [id number] TERESA CALVIN Self Clinical Notes Includes: Signed Clinical Notes starting from 07/08/2022 No Clinical Notes Recorded
--- OUTSIDE RECORDS SUMMARY | 2025-06-17 18:59 | XMS_ITS | Clinical Summary ---
Author Organization [facility] Address [address] [place] [address] Phone Care Team Providers Care Oil Field Equipment Mechanic Supervisor Name Role Phone Tash Rangel MD Primary Care Provider [phone] Allergies No known active allergies Medications atorvastatin [...] 12:07 PM CDT Height 165.1 cm (5' 5) 08/23/2018 9:30 AM [employer] CONSULTANT Body Mass Index 34.95 08/23/2018 9:30 AM [employer] CONSULTANT Plan of Treatment Health Maintenance Due Date Last Done Comments Hepatitis C Virus (HCV) Screening 1973 Hepatitis B Immunization (1 of 3 - 19+ 3-dose series) 1992 Pap Smear 1994 Cervical Cancer Screening (CCS) 2003 HPV/Cotest 2003 Cologuard 2018 Immunochemical Fecal Occult Blood 2018 Pneumococcal Immunization (5 0+ years) (1 of 1 - PCV) 2023 Zoster Immunization (1 of 2) 2023 Influenza Immunization (#1) 02/17/202503/19, 05/17/2017 SARS-COV-2 Immunization (3 - 2024- season) 2025 02/03/2021, 01/06/2021 Colonoscopy 08/23/2028 08/23/2018 Colorectal Cancer Screening 08/23/2028 Respiratory Syncytial Virus (RSV) Immunization (Adult) (1 - 1-dose 75+ series) 2048 DTaP/Tdap/Td Immunization Discontinued 07/06/2018 TdaP Immunization Completed 07/06/2018 Human Papillomavirus (HPV) Immunization (No Doses Required) Completed Meningococcal Immunization (ACWY) Aged Out No longer eligible based on patient's age to complete this topic Rotavirus Immunization Aged Out No lo nger eligible based on patient's age to complete this topic Insurance [facility] Care Teams Oil Field Equipment Mechanic Supervisor Relationship Specialty Start Date End Date Tash Rangel MD [address] [place] [address] PCP - General Internal Medicine 04/29/17
--- OUTSIDE RECORDS SUMMARY | 2025-06-17 18:59 | XMS_ITS | Clinical Summary ---
Author Organization [facility] Address [address] [place] [address] Phone Care Team Providers Care Plating Tank Operator Name Role Phone MISAEL SANTOS DO Unavailable [phone] Reason for Visit and Chief Complaint The Chief Complaint is: monday pt started to have sore throat, low grade fever of 99.5, body aches,headache, left ear feels clogged and sinus pressure. states she has bad allergies. daughter- in- lawtested positive today and she was with her on monday Plan of Treatment - The options include close observation - Last Documented On 05/10/2020 3:08PM ; [facility] - Watch for signs/symptoms of infection, return to the clinic if seen - Last Documented On 05/10/2020 3:08PM ; [facility] Patient is to quarantine for 14 days past last exposure OTC medication for fever and/or bodyaches Call clinic for worsening symptoms or concerns Go to ED for severe difficulty breathing or lethargy Take medication as directed. Saline nasal spray to help with congestion. - Last Documented On 05/10/2020 3:08PM ; [facility] Instructions to patient Watch for signs/symptoms of infection, return to the clinic if seen Last Documented On 0 3:02PM ; [facility] Assessments Includes: Assessments from this encounter Findings - Exposure to a viral disease - Last Documented On 05/10/2020 3:08PM ; [facility] - Acute sinusitis - Last Documented On 05/10/2020 3:08PM ; [facility] Instructions Includes: Instructions from this encounter Instructions to patient Watch for signs/symptoms of infection, return to the clinic if seen Last Documented On 0 3:02PM ; [facility] Medical Equipment - Implanted Devices Includes: Current Devices No Medical Equipment Recorded Medications Includes: Medications discussed during this encounter and other current Medications New / Renewed during this visit MARCELA CARRASCO on 05/10/2020 Doxycycline Hyclate 100 MG Oral Tablet Provider: MARCELA Eckert 10 day supply: 20 tablet, 0 refills Diagnosis: Acute frontal sinusitis, unspecified One tablet twice a day Pharmacy: [address] [address] - Last Documented On 3 10:44AM By Lois CARRASCO ; [facility] Current Medications (continue as prescribed) Amoxicillin-Pot Clavulanate 875-125 MG Oral Tablet 06/14/2023 Provider: LOIS CARRASCO Diagnosis: Acute sinusitis, unspecified One tablet twice a day Last Documented On 3 10:52AM By Lois CARRASCO ; [facility] traZODone HCl 50 MG Oral Tablet 05/25/2023 Provider: ELZBIETA PRINCE MD Diagnosis: Last Documented On 06/14/2023 10:27AM By Francy Castillo ; [facility] Venlafaxine HCl ER 150 MG Or al Capsule Extended Release 24 Hour 04/06/2023 Provider: ELZBIETA PRINCE MD Diagnosis: Last Documented On 06/14/2023 10:27AM By Francy Castillo ; [facility] Atorvastatin Calcium 40MG Oral Tablet 10/20/2016 Pro vider: Diagnosis: Last Documented On 10/20/2016 8:39AM By YORDY NEGRON MA ; [facility] Lansoprazole 30MG Oral Capsule Delayed Release 017 Provider: Diagnosis: Last Documented On 10/20/2016 8:40AM By YORDY NEGRON MA ; [facility] Past Medications on file MedroxyPROGESTERone Acetate 10MG Oral Tablet 11/23/2016 - 01/22/2017 Provider: ROLAND TATE BC Diagnosis: Endometrial hyperplasia, unspecified One tablet daily ONE TAB DEBORAH LY FIRST 10 DAYS OF EACH MONTH WITH FOOD Last Documented On 7 3:00PM [facility] ; [facility] Medications Administered Includes: Administered Medications from this encounter No Administered Medications Recorded Vital Signs Includes: Vital Signs from this encounter Vital Name 05/10/2020 02:48P Pulse Rate-Sitting (bpm) 94 Temp-Oral (F) 98.4 Oxygen Saturation (%) 96 Last Documented: On 05/10/2020 2:50PM ; [facility] Results Includes: Results discussed during this encounter Rapid COVID Test [facility] Ordered by MARCELA CARRASCO on Collected: Reported: 05/10/2020 14:55 Last Documented On 0 2:56PM ; [facility] Reviewed on 05/10/2020; All test results are final unless otherwise noted. Rapid COVId neg N (Normal) Last Documented On 0 2:55PM ; [facility] Int. QC Acceptable yes N (Normal) Last Documented On 0 2:55PM ; [facility] Lot # and Exp. Date [id number] 09/03/20 N (Normal) Last Documented On 0 2:55PM ; [facility] History of Present Illness Includes: History of Present Illness from this encounter SYLVIA CALVIN is a 45 year old female. Source of patient information was patient ? Allergy list reviewed ? Medication reconciliation performed - Not feeling fine - Feeling tired - Feeling poorly (malaise) - Fever - No chills - Headache - Facial pain - Sinus pain - Swollen glands in the neck on the left side - Painful - No eye symptoms - The ears feel pressured on the left - Nasal discharge - Nasal passage blockage (stuffiness) - Sore throat comes and goes - The ears do not feel pressured - No sneezing - No chest pain or discomfort - No palpitations - No dyspnea - No cough - No wheezing - Decreased appetite - No nausea - No vomiting - No abdominal pain - No diarrhea - No increase in urinary frequency - Myalgias - No dizziness - No skin symptoms Denies any recent travel. Pt presents to the clinic with complaints of stuffy nose, sinus pressure, runny nose, sore throat, fever, body aches, and navarro. PT states that her sx started on Monday. Pt states that she found out today that her future daughter in law tested positive today and she was most recently around her on monday. Pt states that she also has ear pressure. Pt denies SOB or wheezing. Social History Description Last Updated No travel 05/10/2020 Last Documented On 0 3:08PM ; [facility] Smoking Status Unknown Medical History Includes: Medical History addressed during this encounter Description Last Updated Exposure to a contagious disease 020 Last Documented On 0 3:08PM ; [facility] Family History Includes: Family History addressed during this encounter No Family History Recorded Review of Systems Includes: Review of Systems from this encounter No Review of Systems Recorded Mental Status Includes: Mental Status from this encounter No Mental Status Recorded Functional Status Includes: Functional Status from this encounter No Functional Status Recorded Physical Exam Includes: Physical Exam from this encounter Allergies Includes: Active Allergies No Known Allergies Encounters Encounter Provider Location Date Check-In Time Check-Out Time Diagnosis SICK VISIT MARCELA CEDILLO CREW BOAT OPERATOR-C [facility] 0 2:15PM 3:01PM Exposure To Contagious Viral Disease,Sinusi tis Acute Insurance Includes: Active Insurance Policies Plan Name Member ID Group # Subscriber Relationship Effect jerica Dates 1 - [facility] [id number] TERESA CALVIN Self Clinical Notes Includes: Clinical Notes from this encounter No Clinical Notes Recorded
--- OUTSIDE RECORDS SUMMARY | 2025-06-17 18:59 | XMS_ITS | Clinical Summary ---
Author Organization [facility] Address [address] [place] [address] Phone Care Team Providers Care Lifeguard Name Role Phone MISAEL SANTOS DO Unavailable [phone] Reason for Visit and Chief Complaint PELVIC W/TVT Plan of Treatment No Plan of Treatment Recorded Assessments Includes: Assessments from this encounter Findings - Benign endometrial hyperplasia - Last Documented On 04/19/2017 1:03PM ; [facility] Medical Equipment - Implanted Devices Includes: Current Devices No Medical Equipment Recorded Medications Includes: Medications discussed during this encounter and other current Medications Current Medications (continue as prescribed) Amoxicillin-Pot Clavulanate 875-125 MG Oral Tablet 06/14/2023 Provider: LOIS CARRASCO Diagnosis: Acute sinusitis, unspecified One tablet twice a day Last Documented On 10:52AM By Lois CARRASCO ; [facility] traZODone HCl 50 MG Oral Tablet 05/25/2023 Provider: ELZBIETA PRINCE MD Diagnosis: Last Documented On 06/14/2023 10:27AM By Francy Castillo ; [facility] Venlafaxine HCl ER 150 MG Or al Capsule Extended Release 24 Hour 04/06/2023 Provider: ELZBIETA PRINCE MD Diagnosis: Last Documented On 06/14/2023 10:27AM By Francy Castillo ; [facility] Atorvastatin Calcium 40MG Oral Tablet 10/20/2016 Pro vider: Diagnosis: Last Documented On 10/20/2016 8:39AM By YORDY NEGRON MA ; [facility] Lansoprazole 30MG Oral Capsule Delayed Release 017 Provider: Diagnosis: Last Documented On 10/20/2016 8:40AM By YORDY NEGRON MA ; [facility] Past Medications on file MedroxyPROGESTERone Acetate 10MG Oral Tablet 11/23/2016 - 01/22/2017 Provider: ROLAND BRUNO Diagnosis: Endometrial hyperplasia, unspecified One tablet daily ONE TAB DEBORAH LY FIRST 10 DAYS OF EACH MONTH WITH FOOD Last Documented On 7 3:00PM By ROLAND TATE-DAMION ; [facility] Medications Administered Includes: Administered Medications from this encounter No Administered Medications Recorded Results Includes: Results discussed during this encounter [facility]. Ordered by ROLAND BRUNO on 0 10/20/2016 Collected: 10/20/2016 Reported: 10/26/19 17 16:52 Last Documented On 7 8:16AM ; [facility] Reviewed by ROLAND BRUNO on 10/26/2016; All test results are final unless otherwise noted. FSH 45.0 mIU/mL N (Normal) Last Documented On 10/26/2016 8:16AM ; [facility] Note: Reference Range Follicular Phase 2.5-10.2 Mid-cycle Peak 3.1-17.7 Luteal Phase 1.5- 9.1 Postmenopausal 23.0-116.3 History of Present Illness Includes: History of Present Illness from this encounter No History of Present Illness Recorded Social History No Social History Recorded - Smoking Status Unknown Procedures and Surgical History Surgical History Last Updated History of tubal ligation 11/21/2016 Last Documented On 7 12:55PM ; [facility] Surgical / procedural histor y L5-S1 fusion ~C3-C4 fusion ~Arnold chiari decompression 10/20/2016 Last Documented On 7 12:55PM ; [facility] Medical History Includes: Medical History addressed during this encounter Description Last Updated Sexually active 11/21/2016 Last Documented On 7 12:55PM ; [facility] History of Pap smear done 10/20/2016 06/0 10/2016 Last Documented On 7 12:55PM ; [facility] LMP: 201411/21/2016 Last Documented On 7 12:55PM ; [facility] Result: abnormal (+)HPV 11/21/2016 Last Documented On 7 12:55PM ; [facility] History of chronic reflux esophagitis Last Documented On 7 12:55PM ; [facility] History of hyperlipidemia 10/20/2016 Last Documented On 7 12:55PM ; [facility] ACM type 1 10/20/2016 Last Documented On 7 12:55PM ; [facility] Aborta 2 10/20/2016 Last Documented On 7 12:55PM ; [facility] 4 10/20/2016 Last Documented On 7 12:55PM ; [facility] Para 2 10/20/2016 Last Documented On 7 12:55PM ; [facility] Status post tubal ligation 10/20/2016 Last Documented On 7 12:55PM ; [facility] Family History Includes: Family History addressed during this encounter Description Last Updated Maternal aunt's history of malignant fem adelina breast neoplasm Mat Aunt 10/20/2016 Last Documented On 7 12:55PM ; [facility] Maternal history of diabetes mellitus Mo ther and father 10/20/2016 Last Documented On 7 12:55PM ; [facility] Review of Systems Includes: Review of Systems from this encounter No Review of Systems Recorded Mental Status Includes: Mental Status from this encounter No Mental Status Recorded Functional Status Includes: Functional Status from this encounter No Functional Status Recorded Physical Exam Includes: Physical Exam from this encounter No Physical Exam Recorded Allergies Includes: Active Allergies No Known Allergies Encounters Encounter Provider Location Date Check-In Time Check-Out Time Diagnosis PELVIC W/TVT ROLAND HOOK RN WHNP [facility] RASCHEL KNITTING MACHINE OPERATOR 04/18/20 17 8:14AM 8:53AM Endometrial Hyperplasia - Benign Insurance Includes: Active Insurance Policies Plan Name Member ID Group # Subscriber Relationship Effect jerica Dates 1 - [facility] [id number] TERESA CALVIN Self Clinical Notes Includes: Clinical Notes from this encounter No Clinical Notes Recorded
--- OUTSIDE RECORDS SUMMARY | 2025-06-17 18:59 | XMS_ITS ---
Care Plan - [facility] Created on: June 17, 2025 TERESA CALVIN : 1975 Sex: Female Author Organization [facility] Address [address] [place] [address] Phone Care Team Providers Care Child Day Care Teacher Name Role Phone MISAEL SANTOS DO Unavailable [phone]
--- OUTSIDE RECORDS SUMMARY | 2025-06-17 18:59 | XMS_ITS | Clinical Summary ---
Author Organization [facility] Address [address] [place] [address] Phone Care Team Providers Care Tempering Oven Operator Name Role Phone MISAEL SANTOS DO Unavailable [phone] Reason for Visit and Chief Complaint [Patient Encounter] Plan of Treatment No Plan of Treatment Recorded Assessments Includes: Assessments from this encounter No Assessments Recorded Medical Equipment - Implanted Devices Includes: Current Devices No Medical Equipment Recorded Medications Includes: Medications discussed during this encounter and other current Medications Current Medications (continue as prescribed) Amoxicillin-Pot Clavulanate 875-125 MG Oral Tablet 06/14/2023 Provider: LOIS CARRASCO Diagnosis: Acute sinusitis, unspecified One tablet twice a day Last Documented On 10:52AM By Lois CARRASCO ; [facility] traZODone HCl 50 MG Oral Tablet 05/25/2023 Provider: ELZBEITA PRINCE MD Diagnosis: Last Documented On 06/14/2023 10:27AM By Francy Castillo ; [facility] Venlafaxine HCl ER 150 MG Or al Capsule Extended Release 24 Hour 04/06/2023 Provider: ELZBIETA PRINCE MD Diagnosis: Last Documented On 06/14/2023 10:27AM By Francy Castillo ; [facility] Atorvastatin Calcium 40MG Oral Tablet 10/20/2016 Pro vider: Diagnosis: Last Documented On 10/20/2016 8:39AM By YORDY NEGRON MA ; [facility] Lansoprazole 30MG Oral Capsule Delayed Release 017 Provider: Diagnosis: Last Documented On 10/20/2016 8:40AM By YORDY NEGRON MA ; [facility] Medications Administered Includes: Administered Medications from this encounter No Administered Medications Recorded Results Includes: Results discussed during this encounter No Results Recorded For Specified Dates History of Present Illness Includes: History of Present Illness from this encounter No History of Present Illness Recorded Social History No Social History Recorded - Smoking Status Unknown Medical History Includes: Medical History addressed during this encounter No Medical History Recorded Family History Includes: Family History addressed during [...] Encounters Encounter Provider Location Date Check-In Time Check- Out Time Diagnosis [Patient Encounter] ROLAND HOOK RN ANA CRISTINA [facility] RN OBGYN 8 3:46PM 11:59PM Insurance Includes: Active Insurance Policies Plan Name Member ID Group # Subscriber Relationship Effect jerica Dates 1 - [facility] [id number] TERESA CALVIN Self Clinical Notes Includes: Clinical Notes from this encounter No Clinical Notes Recorded
--- OUTSIDE RECORDS SUMMARY | 2025-06-17 19:00 | XMS_ITS | Patient Health Record ---
Author Organization [facility] Address [address] [place] [address] Care Team Providers Care Awake Overnight Counselor Name Role Phone Juan Carlos PEÑALOZA, Tash Primary Care Provider Kavon GRACE PATHOLOGY LAB TECHNICIAN, MEJIA Unavailable [phone] Allergies No Known Allergies Reason For Referral No Information Medications Medication SIG (Take, Route, Frequency, Duration) Notes Start Date End Date Status Amitriptyline HCl 25 MG TAKE 1 TABLET BY MOUTH EVERYDAY AT BEDTIME; Duration: 90 Active LORazepam 2 MG/ML 1 ml as needed Orall y Twice a day Active NexIUM 20 MG 1 capsule Orally Onc e a day Active Rosuvastatin Calcium 10 MG 1 tablet Oral ly Once a day Active Effexor XR 75 MG 1 capsule with food Orally Once a day Active Social History Tobacco Use: Social History Observation Description Date Details (start date - stop date) Current Smoker NA - NA Tobacco Use/Smoking Question Answer Notes Are you a current smoker How often do you smoke cigarettes? every day How many cigarettes a day do you smoke? 6-10 Plan Of Treatment No Information Insurance Providers Payer Name Payer Address Payer Phone Subscriber Number Group Number Insured Name Patient Relationship to Insured Coverage Start Date Coverage End Date [facility] PPO [address] [place], [place] [id number] Ivanna Kearney Self - patient is the insured Medical (General) History Medical History History ICD Code chiari malformation 1 anxietty depression GERD gallbladder dysfunction pancreatitis migraines hyperlipidemia Surgical History Surgery Date(Month/Year) laminectomy arnold chiari malformation decompression 2006 ERCP Anthony wtih biliary stenting 02/23 tubal ligation ectopic preg gallbladder removal 2018
--- OUTSIDE RECORDS SUMMARY | 2025-06-17 19:00 | XMS_ITS | Clinical Summary ---
Author Organization [facility] Address [facility] [place] [address] Care Team Providers Care Boiler Control Technician Name Role Phone Unavailable Primary Care Provider [...] of 2) 2023 COVID-19 Vaccine ( - 2024-2 6 season) 2025 Influenza Adult (#1) 2025 Hepatitis A Vaccines Aged Out No long er eligible based on patient's age to complete this topic Meningococcal B Vaccine Aged Out No l onger eligible based on patient's age to complete this topic Meningococcal Vaccine Aged Out No kinsey rolando eligible based on patient's age to complete this topic RSV Immunizations Under 20 Months Aged Out No longer eligible based on patient's age to complete this topic
--- OUTSIDE RECORDS SUMMARY | 2025-06-17 19:00 | XMS_ITS | Clinical Summary ---
Author Organization [facility] Address [address] [place] [address] Phone Care Team Providers Care Grocery Shopper Name Role Phone MISAEL SANTOS DO Unavailable [phone] Reason for Visit and Chief Complaint The Chief Complaint is: Sinus issues. back pain eye drainage. FOR ABOUT A WEEK WITH CONGESTION, COUGH, DRAINAGE IN BACK OF THROAT, SOB, HEADACHE, RUNNY NOSE Plan of Treatment - Return to the clinic if condition worsens or new symptoms arise - Last Documented On 06/14/2023 10:47AM ; [facility] - Patient to call if problem develops - Last Documented On 06/14/2023 10:47AM ; [facility] Assessments Includes: Assessments from this encounter Findings - Cough [R05.1 - Acute cough] - Last Documented On 06/14/2023 10:47AM ; [facility] - Acute sinusitis [J01.90 - Acute sinusitis, unspecified] - Last Documented On 06/14/2023 10:47AM ; [facility] Medical Equipment - Implanted Devices Includes: Current Devices No Medical Equipment Recorded Medications Includes: Medications discussed during this encounter and other current Medications Discontinued / Stopped on this date MARCELA CARRASCO on 05/10/2020 Doxycycline Hyclate 100 MG Oral Tablet Provider: MARCELA Eckert Diagnosis: Acute frontal si nusitis, unspecified Last Documented On 10:44AM By Lois CARRASCO ; [facility] New / Renewed during this visit LOIS CARRASCO on 06/14/2023 Amoxicillin-Pot Clavulanate 875-125 MG Oral Tablet Provider: LOIS EUBANKS-C 10 day supply: 20 tablet, 0 refills Diagnosis: Acute sinusitis, unspecified One tablet twice a day Pharmacy: [address], [address] - Last Documented On 10:52AM By Lois CARRASCO ; [facility] Current Medications (continue as prescribed) traZODone HCl 50 MG Oral Tablet 05/25/2023 Provider: ELZBIETA PRINCE MD Diagnosis: Last Documented On 06/14/2023 10:27AM By Francy Castillo ; [facility] Venlafaxine HCl ER 150 MG Or al Capsule Extended Release 24 Hour 04/06/2023 Provider: ELZBIETA PRINCE MD Diagnosis: Last Documented On 06/14/2023 10:27AM By Francy Castillo ; [facility] Atorvastatin Calcium 40MG Oral Tablet 10/20/2016 Pro vider: Diagnosis: Last Documented On 10/20/2016 8:39AM By YORDY NEGRON MA ; [facility] Lansoprazole 30MG Oral Capsule Delayed Release 017 Provider: Diagnosis: Last Documented On 10/20/2016 8:40AM By YORDY NEGRON MA ; [facility] Past Medications on file MedroxyPROGESTERone Acetate 10MG Oral Tablet 11/23/2016 - 01/22/2017 Provider: ROLAND HOOK RN ANA CRISTINA Diagnosis: Endometrial hyperplasia, unspecified One tablet daily ONE TAB DEBORAH LY FIRST 10 DAYS OF EACH MONTH WITH FOOD Last Documented On 7 3:00PM By ROLAND HOOK ANA CRISTINA- ; [facility] Medications Administered Includes: Administered Medications from this encounter No Administered Medications Recorded Vital Signs Includes: Vital Signs from this encounter Vital Name 06/14/2023 10:29A Pulse Rate-Sitting (bpm) 75 Respiration Rate (breaths/min) 21 Temp-Oral (F) 98.2 Height (in) 64.75 Weight (lb) 230.375 Body Mass Index 38.6 Body Surface Area 2.1 Oxygen Saturation (%) 98 Last Documented: On 06/14/2023 10:30A M ; [facility] Results Includes: Results discussed during this encounter SARS COVID-19 FLU A & B [facility] Ordered by LOIS EUBANKS-Maryann on 08/15/2022 Collected: Reported: 06/14/2023 Last Documented On 3 10:45AM ; [facility] Reviewed on 06/14/2023; All test results are final unless otherwise noted. COVID NEG N (Normal) Last Documented On 3 10:45AM ; [facility] INFLUENZA A NEG (Negative) N (Normal) Last Documented On 3 10:45AM ; [facility] INFLUENZA B NEG (negative) N (Normal) Last Documented On 3 10:45AM ; [facility] INT. QC ACCEPTABLE? YES N (Normal) Last Documented On 3 10:45AM ; [facility] LOT # & EXP. DATE [id number] 04-19-24 N (Normal) Last Documented On 3 10:45AM ; [facility] History of Present Illness Includes: History of Present Illness from this encounter SYLVIA CALVIN is a 48 year old female. - Allergy list reviewed - Medication list reviewed - Medication list reviewed - Feeling poorly (malaise) - No fever - Headache - Sinus pain - Pain in the cheek - No eye symptoms - The ears feel full - Nasal discharge - Postnasal drip - Nasal passage blockage (stuffiness) - No sneezing - No sore throat - Feeling congested in the chest - Cough - No dyspnea - No wheezing - Appetite not decreased - No nausea - No vomiting - No diarrhea Teresa is here with symptoms x 1 week. Social History Description Last Updated Current smoker 06/14/2023 Last Documented On 3 10:47AM ; [facility] Smoking Status Unknown Procedures and Surgical History Includes: Procedures from this encounter Procedures Code Diagnosis Performing Provider Service L ocation Service Date the options include decongestants Last Documented On 3 10:47AM ; [facility] the options include antihist amines such as claritin/zyrtec/josefina as needed per product instructions Last Documented On 3 10:43AM ; [facility] plan of care reviewed and agreed to Last Documented On 3 10:43AM ; [facility] patient to call if symptoms worsen or not improved in 5-7 days to update patient's status Last Documented On 3 10:43AM ; [facility] use of tobacco assessment performed 1000F Last Documented On 3 10:29AM ; [facility] review of medications documented 1160F Last Documented On 3 10:29AM ; [facility] Clinical summary provided to patient Last Documented On 3 10:43AM ; [facility] Medical History Includes: Medical History addressed during this encounter Description Last Updated Date COVID symptoms started: 06/09/2023 06/14/2023 Last Documented On 3 10:47AM ; [facility] No Contact with and (Suspected) exposure to COVID-19 06/14/2023 Last Documented On 3 10:47AM ; [facility] No fall 06/14/2023 Last Documented On 3 10:47AM ; [facility] Family History Includes: Family History addressed during this encounter No Family History Recorded Review of Systems Includes: Review of Systems from this encounter Systemic: No fever. Head: Headache. Eyes: No eye symptoms. Otolaryngeal: No earache. Nasal discharge. No sore throat. Cardiovascular: No cardiovascular symptoms. Chest pain or discomfort. Pulmonary: Cough. No wheezing. Gastrointestinal: No vomiting, no abdominal pain, and no diarrhea. Musculoskeletal: No musculoskeletal symptoms. Skin: No skin symptoms. 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 [facility] 06/14/20 23 10:19AM 10:42AM Sinusitis Acute,Assessm ent of Cough Insurance Includes: Active Insurance Policies Plan Name Member ID Group # Subscriber Relationship Effect jerica Dates 1 - [facility] [id number] TERESA Missael CALVIN Self Clinical Notes Includes: Clinical Notes from this encounter * Progress note Date Encounter Last Documented by 06/14/2023 COVID SICK VISIT- ESTABLISHED JOSE ALEJANDRO OCHOA Last documented on 06/14/2023; 10:47 AM, LOIS LOERA [employer] WORKER-C; [facility] Chief Complaint The Chief Complaint is: Sinus issues. back pain eye drainage. FOR ABOUT A WEEK WITH CONGESTION, COUGH, DRAINAGE IN BACK OF THROAT, SOB, HEADACHE, RUNNY NOSE. History of Present Illness TERESA CALVIN is a 48 year old female. - Allergy list reviewed - Medication list reviewed - Medication list reviewed - Feeling poorly (malaise) - No fever - Headache - Sinus pain - Pain in the cheek - No eye symptoms - The ears feel full - Nasal discharge - Postnasal drip - Nasal passage blockage (stuffiness) - No sneezing - No sore throat - Feeling congested in the chest - Cough - No dyspnea - No wheezing - Appetite not decreased - No nausea - No vomiting - No diarrhea Teresa is here with symptoms x 1 week. Current Medication - Atorvastatin Calcium 40MG Oral Tablet 40 MG One tablet daily 0 days, 0 refills - Lansoprazole 30MG Oral Capsule Delayed Release 30 MG One tablet twice a day 0 days, 0 refills - traZODone HCl 50 MG Oral Tablet 90 days, 0 refills - Venlafaxine HCl ER 150 MG Oral Capsule Extended Release 24 Hour 90 days, 0 refills Past Medical/Surgical History Reported: Exposure: No Contact with and (Suspected) exposure to COVID-19. Date COVID symptoms started: 06/09/2023. Physical Trauma: No fall. Social History Tobacco use: Current smoker. Allergies - No Known Allergies Review Of Systems Systemic: No fever. Head: Headache. Eyes: No eye symptoms. Otolaryngeal: No earache. Nasal discharge. No sore throat. Cardiovascular: No cardiovascular symptoms. Chest pain or discomfort. Pulmonary: Cough. No wheezing. Gastrointestinal: No vomiting, no abdominal pain, and no diarrhea. Musculoskeletal: No musculoskeletal symptoms. Skin: No skin symptoms. Physical Findings - Vitals taken 06/14/2023 10:29 am Pulse Rate-Sitting 75 bpm Respiration Rate 21 per min Temp-Oral 98.2 F Height 64.75 in Weight 230 lbs 6 oz Body Mass Index 38.6 kg/m2 Body Surface Area 2.1 m2 Oxygen Saturation 98 % General Appearance: - Well developed. - Well nourished. - Well hydrated. - In no acute distress. Eyes: General/bilateral: Pupils: - PERRLA. Ears: Right Ear: External Auditory Canal: - Normal. Tympanic Membrane: - Normal. - Not erythematous. - No serous exudate behind tympanic membrane. Left Ear: External Auditory Canal: - Normal. Tympanic Membrane: - Normal. - Not erythematous. - No serous exudate behind tympanic membrane. Nose: General/bilateral: Discharge: - Rhinorrhea that is clear. Cavity: - Nasal mucosa red. - Nasal turbinate hypertrophied. Sinus Tenderness: - Tenderness of sinuses. Pharynx: Oropharynx: - Tonsils showed no abnormalities. - Tonsils were not erythematous. - Tonsils were not enlarged. - Tonsils showed no exudate. - Not inflamed. Mucosal: - Pharynx showed an accumulation of mucous. Lymph Nodes: - Normal. Lungs: - Clear to auscultation. - No wheezing was heard. - No rhonchi were heard. - No rales/crackles were heard. Cardiovascular: Heart Rate And Rhythm: - Normal. Heart Sounds: - Normal. Murmurs: - No murmurs were heard. Abdomen: Auscultation: - Bowel sounds were normal. Palpation: - No direct tenderness in the abdomen. Skin: - Mucous membranes were not dry. Tests - Test: SARS COVID-19 FLU A & B Report Date: 06/14/2023 COVID NEG Normal INFLUENZA A NEG Normal INFLUENZA B NEG Normal INT. QC ACCEPTABLE? YES Normal LOT # & EXP. DATE [id number] 04-19-24 Normal Assessment - Cough [R05.1 - Acute cough] - Acute sinusitis [J01.90 - Acute sinusitis, unspecified] Therapy - The options include decongestants and antihistamines such as claritin/zyrtec/josefina as needed per product instructions. - Clinical summary provided to patient. - Patient to call if symptoms worsen or not improved in 5-7 days to update patient's status. - Plan of care reviewed and agreed to. Irrigate nasal passages with saline spray or neti pot to relieve congestion. Use tylenol/ibuprofen as needed for pain/fever. Plan StartCited - Acute cough In office procedures/*Clia Waived Labs: SARS COVID-19 + flu A & B test EndCited StartCited - Acute sinusitis, unspecified Amoxicillin-Pot Clavulanate 875-125 MG tablet One tablet twice a day, 10 days, 0 refills EndCited - Return to the clinic if condition worsens or new symptoms arise - Patient to call if problem develops Practice Management Use of tobacco assessment performed Review of medications documented. Health Reminders - Assess BMI satisfied 06/14/2023. - Assess Tobacco Use satisfied 06/14/2023.
--- OUTSIDE RECORDS SUMMARY | 2025-06-17 19:01 | XMS_ITS | Clinical Summary ---
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 Gender Identity Not on file Sexual Orientation Not on file Last Filed Vital Signs Vital Sign Reading Time Taken Comments Blood Pressure 125/84 08/02/2021 1:51 PM ASTRONAUTICAL ENGINEER Pulse 82 08/02/2021 1:51 PM ASTRONAUTICAL ENGINEER Temperature 36.6 C (97.8 F) 08/02/2021 1:51 PM ASTRONAUTICAL ENGINEER Respiratory Rate 18 08/02/2021 1:51 PM ASTRONAUTICAL ENGINEER Oxygen Saturation 99% 08/02/2021 1:51 PM ASTRONAUTICAL ENGINEER Inhaled Oxygen Concentration - - Weight 98.9 kg (218 lb) 08/02/2021 1:51 PM ASTRONAUTICAL ENGINEER Height 165.1 cm (5' 5) 08/02/2021 1:51 PM ASTRONAUTICAL ENGINEER Body Mass Index 36.28 08/02/2021 1:51 PM ASTRONAUTICAL ENGINEER Plan of Treatment Health Maintenance Due Date Last Done Comments Breast Cancer Screening-Mammogram 1973 Cervical Cancer Screening 1973 Colon Cancer Screening-Colonoscopy 1973 Depression Screening 1973 Hepatitis C Screening 1973 Hepatitis B Screening 1991 Regular Well Visit/Exam 18-64 1991 Pneumococcal vaccine <65 (1 of 2 - PCV) 1992 Zoster Vaccine (1 of 2) 2023 Influenza Vaccine (#1) 2025 04/03/2019, 2016 DTaP/Tdap/Td Vaccine (2 - Td or Tdap) 07/06/2028 Medical Devices Implanted Type Area Furnace Combustion Analyst Device Identifier Shelf Expiration Date Model / Serial / Lot [id number] Cotton-Mares 8.5fr 7cm Taper Tip Guidewire Proximal Distal Flap - [id number] Implanted:Qty: 1 on 02/23/2021 by Orion Soriano MD at [facility] Stent N/A: [employer] 12/12/2023 [id number] / / [id number] Insurance 3D [employer] [place] CHO[place] Advance Directives For more information, please contact: [phone] * Full Code (Latest Code Status on File) Date Activated Date Inactivated Comments 02/27/2021 10:11 AM 02/28/2021 8:20 PM * Full Code Date Activated Date Inactivated Comments 02/23/2021 9:59 AM 02/27/2021 4:41 AM * Full Code Date Activated Date Inactivated Comments 02/23/2021 9:59 AM 02/23/2021 9:59 AM Care Teams Food Safety Coordinator Relationship Specialty Start Date End Date Tash Rangel MD [address] [place] [address] PCP - General 01/21/21 [place] [address] [place] [address] Consulting Physician Gastroenterology 02/28/21"
--- OUTSIDE RECORDS SUMMARY | 2025-06-17 19:01 | XMS_ITS ---
Author Organization [facility] Address [address] [place] [address] Phone Care Team Providers Care Window Shade Estimator Name Role Phone MISAEL SANTOS DO Unavailable [phone] Plan of Treatment Findings Encounter Date Ordered patient to call if jovanna cantu develops COVID SICK VISIT- ESTABLISHED PATIENT with LOIS N LOERA DARKLIGHT INSPECTOR-C 06/14/2023 Last Documented On 3 10:47AM ; [facility] Ordered return to the clinic if condition worsens or new symptoms arise COVID SICK VISIT- ESTABLISHED PATIENT with LOIS N LOERA DARKLIGHT INSPECTOR-C 06/14/2023 Last Documented On 3 10:47AM ; [facility] The options include close observation SI CK VISIT with MARCELA A MAMADOU DARKLIGHT INSPECTOR-C 05/10/2020 Last Documented On 0 3:08PM ; [facility] Watch for signs/symptoms of infection, return to the clinic if seen SICK VISIT with MARCELA Saravia MAMADOU DARKLIGHT INSPECTOR-C 05/10/2020 Last Documented On 0 3:08PM ; [facility] Ordered Clinical summary pro vided to patient ENDOMETRIAL BIOPSY with ROLAND HOOK RN ANA CRISTINA 11/21/2016 Last Documented On 7 8:39AM ; [facility] Ordered Clinical summary pro vided to patient NEW [employer] BILLING PAYROLL CLERK EXAM with ROLAND HOOK RN ANA CRISTINA 10/20/2016 Last Documented On 7 8:52AM ; [facility] Ordered weight loss diet [employer]ING PAYROLL CLERK EXAM with ROLAND HOOK RN ANA CRISTINA 10/20/2016 Last Documented On 7 8:52AM ; [facility] Instructions to patient Watch for signs/symptoms of infection, return to the clinic if seen Last Documented On 0 3:02PM ; [facility] Instructed to call if excess jerica bleeding or abdominal/pelvic pain Last Documented On 7 8:18AM ; [facility] Patient may take Motrin OTC PRN as directed Last Documented On 7 8:18AM ; [facility] Instructions for patient ER if dizzy, vomiting or light-headed due to heavy bleeding Last Documented On 7 9:30AM ; [facility] Instructions for patient ER if bleeding through reg. sized pad/tampon < 1 hour Last Documented On 7 9:30AM ; [facility] Instructions for patient : p atient is to keep a menstrual diary to help with further evaluation and treatment Last Documented On 7 9:30AM ; [facility] Intervention and counseling on cessation of tobacco use Last Documented On 7 9:30AM ; [facility] Lose weight Last Documented On 7 8:58AM ; [facility] Instructed to call if excess jerica bleeding or abdominal/pelvic pain Last Documented On 7 8:58AM ; [facility] Instructions For Patient: Mo nthly Self Breast Exam Last Documented On 7 8:58AM ; [facility] Recommend diet and exercise at least 30 min three times per week Last Documented On 7 8:58AM ; [facility] Education and Decision Aids were provided during visit for: INFORMED CONSENT DISCUSSION: Endometrial biopsy was discussed in detail including discomfort, insufficient specimen with need to repeat test, and rare incidence of uterine perforation. Patient expressed understanding of the above and consented to the procedure Last Documented On 7 8:18AM ; [facility] Discussed smoking and drug u se Last Documented On 7 8:58AM ; [facility] Patient education about self -examination of breasts Last Documented On 7 9:30AM ; [facility] Patient Education: Daily patrick cium and vitamin D Last Documented On 7 8:58AM ; [facility] Assessments Includes: Assessments for all patient encounters Findings Encounter Date Acute sinusitis COVID SICK VISIT- ES TABLISHED PATIENT with LOIS Merida LOERA DARKLIGHT INSPECTOR-C 06/14/2023 Last Documented On 3 10:47AM ; [facility] Assessment of cough COVID SICK VISIT- ES TABLISHED PATIENT with LOIS Merida LOERA DARKLIGHT INSPECTOR-C 06/14/2023 Last Documented On 3 10:47AM ; [facility] Acute sinusitis SICK VISIT with MARCELA Saravia MAMADOU DARKLIGHT INSPECTOR-C 05/10/2020 Last Documented On 0 3:08PM ; [facility] Exposure to a viral disease SICK VISIT with TRAC IE Manjit MAMADOU DARKLIGHT INSPECTOR-C 05/10/2020 Last Documented On 0 3:08PM ; [facility] Benign endometrial hyperplasia PELVIC W/TVT with ROLAND HOOK RN ANA CRISTINA 04/18/2017 Last Documented On 7 1:03PM ; [facility] Endometrial hyperplasia CHART UPDATE with ROLAND HOOK RN ANA CRISTINA 11/23/2016 Last Documented On 7 2:59PM ; [facility] Postmenopausal bleeding CHART UPDATE with ROLAND HOOK RN ANA CRISTINA 11/23/2016 Last Documented On 7 2:59PM ; [facility] Endometrial hyperplasia ENDOMETRIAL BIOPSY with ROLAND HOOK RN ANA CRISTINA 11/21/2016 Last Documented On 7 8:39AM ; [facility] Postmenopausal bleeding ENDOMETRIAL BIOPSY with ROLAND HOOK RN ANA CRISTINA 11/21/2016 Last Documented On 7 8:39AM ; [facility] Mastodynia NEW [employer] BILLING PAYROLL CLERK EXAM with ROLAND HOOK RN ANA CRISTINA 10/20/2016 Last Documented On 7 8:52AM ; [facility] NORMAL FEMALE EXAM NEW BRANCH BILLING PAYROLL CLERK EXAM with ROLAND CHEN RN ANA CRISTINA 10/20/2016 Last Documented On 7 8:52AM ; [facility] Postmenopausal bleeding NEW [employer] BILLING PAYROLL CLERK EXAM with ROLAND HOOK RN ANA CRISTINA 10/20/2016 Last Documented On 7 8:52AM ; [facility] Screen malignant neoplasm cervix [employer] BR[employer]CH BILLING PAYROLL CLERK EXAM with ROLAND HOOK RN ANA CRISTINA 10/20/2016 Last Documented On 7 8:52AM ; [facility] Instructions Includes: Instructions for all patient encounters Instructions to patient Watch for signs/symptoms of infection, return to the clinic if seen Last Documented On 0 3:02PM ; [facility] Instructed to call if excess jerica bleeding or abdominal/pelvic pain Last Documented On 7 8:18AM ; [facility] Patient may take Motrin OTC PRN as directed Last Documented On 7 8:18AM ; [facility] Instructions for patient ER if dizzy, vomiting or light-headed due to heavy bleeding Last Documented On 7 9:30AM ; [facility] Instructions for patient ER if bleeding through reg. sized pad/tampon < 1 hour Last Documented On 7 9:30AM ; [facility] Instructions for patient : p atient is to keep a menstrual diary to help with further evaluation and treatment Last Documented On 7 9:30AM ; [facility] Intervention and counseling on cessation of tobacco use Last Documented On 7 9:30AM ; [facility] Lose weight Last Documented On 7 8:58AM ; [facility] Instructed to call if excess jerica bleeding or abdominal/pelvic pain Last Documented On 7 8:58AM ; [facility] Instructions For Patient: Mo nthly Self Breast Exam Last Documented On 7 8:58AM ; [facility] Recommend diet and exercise at least 30 min three times per week Last Documented On 7 8:58AM ; [facility] Education and Decision Aids were provided during visit for: INFORMED CONSENT DISCUSSION: Endometrial biopsy was discussed in detail including discomfort, insufficient specimen with need to repeat test, and rare incidence of uterine perforation. Patient expressed understanding of the above and consented to the procedure Last Documented On 7 8:18AM ; [facility] Discussed smoking and drug u se Last Documented On 7 8:58AM ; [facility] Patient education about self -examination of breasts Last Documented On 7 9:30AM ; [facility] Patient Education: Daily patrick cium and vitamin D Last Documented On 7 8:58AM ; [facility] Medical Equipment - Implanted Devices Includes: Current and historical Devices No Medical Equipment Recorded Medications Includes: Current and historical Medications Current Medications (continue as prescribed) Amoxicillin-Pot Clavulanate 875-125 MG Oral Tablet 06/14/2023 Provider: LOIS CARRASCO Diagnosis: Acute sinusitis, unspecified One tablet twice a day Last Documented On 10:52AM By Lois CARRASCO ; [facility] traZODone HCl 50 MG Oral Tablet 05/25/2023 Provider: ELZBIETA PRINCE MD Diagnosis: Last Documented On 06/14/2023 10:27AM By Francy Castillo ; [facility] Venlafaxine HCl ER 150 MG Or al Capsule Extended Release 24 Hour 04/06/2023 Provider: ELZBIETA PRINCE MD Diagnosis: Last Documented On 06/14/2023 10:27AM By Francy Castillo ; [facility] Atorvastatin Calcium 40MG Oral Tablet 10/20/2016 Pro vider: Diagnosis: Last Documented On 10/20/2016 8:39AM By YORDY NEGRON MA ; [facility] Lansoprazole 30MG Oral Capsule Delayed Release 017 Provider: Diagnosis: Last Documented On 10/20/2016 8:40AM By YORDY NEGRON MA ; [facility] Past Medications on file Doxycycline Hyclate 100 MG Oral Tablet 05/10/2020 - 06/14/2023 Provider: MARCELA CARRASCO Diagnosis: Acute frontal sinusitis, unspecified One tablet twice a day Last Documented On 3 10:44AM By Lois CARRASCO ; [facility] MedroxyPROGESTERone Acetate 10MG Oral Tablet 11/23/2016 - 01/22/2017 Provider: ROLAND TATE BC Diagnosis: Endometrial hyperplasia, unspecified One tablet daily ONE TAB DEBORAH LY FIRST 10 DAYS OF EACH MONTH WITH FOOD Last Documented On 7 3:00PM By ROLAND TATE-BC ; [facility] Medications Administered Includes: Administered Medications in patient's chart No Administered Medications Recorded Results Includes: Results from 06/17/2024 through 06/17/2025 No Results Recorded For Specified Dates History of Present Illness History of Present Illness not supported for this document type No History of Present Illness Recorded Social History Description Last Updated Current smoker 06/14/2023 Last Documented On 3 10:47AM ; [facility] No travel 05/10/2020 Last Documented On 0 3:08PM ; [facility] Personal history 11/21/2016 Last Documented On 7 8:39AM ; [facility] Sexually active 11/21/2016 Last Documented On 7 8:39AM ; [facility] Smoking Status Unknown Procedures and Surgical History Surgical History Last Updated History of tubal ligation 11/21/2016 Last Documented On 7 8:39AM ; [facility] Surgical / procedural histor y L5-S1 fusion ~C3-C4 fusion ~Arnold chiari decompression 10/20/2016 Last Documented On 7 8:52AM ; [facility] Medical History Includes: Medical History in patient's chart Description Last Updated Date COVID symptoms started: 06/09/2023 06/14/2023 Last Documented On 3 10:47AM ; [facility] No Contact with and (Suspected) exposure to COVID-19 06/14/2023 Last Documented On 3 10:47AM ; [facility] No fall 06/14/2023 Last Documented On 3 10:47AM ; [facility] Exposure to a contagious disease 020 Last Documented On 0 3:08PM ; [facility] Sexually active 11/21/2016 Last Documented On 7 8:39AM ; [facility] History of Pap smear done 10/20/2016 06/0 10/2016 Last Documented On 7 8:39AM ; [facility] LMP: 2015 11/21/2016 Last Documented On 7 8:39AM ; [facility] Result: abnormal (+)HPV 11/21/2016 Last Documented On 7 8:39AM ; [facility] History of chronic reflux esophagitis Last Documented On 7 8:52AM ; [facility] History of hyperlipidemia 10/20/2016 Last Documented On 7 8:52AM ; [facility] ACM type 1 10/20/2016 Last Documented On 7 8:52AM ; [facility] Aborta 2 10/20/2016 Last Documented On 7 8:52AM ; [facility] 4 10/20/2016 Last Documented On 7 8:52AM ; [facility] Para 2 10/20/2016 Last Documented On 7 8:52AM ; [facility] Status post tubal ligation 10/20/2016 Last Documented On 7 8:52AM ; [facility] Family History Includes: Family History in patient's chart Description Last Updated Maternal aunt's history of malignant fem adelina breast neoplasm Mat Aunt 10/20/2016 Last Documented On 7 8:52AM ; [facility] Maternal history of diabetes mellitus Mo ther and father 10/20/2016 Last Documented On 7 8:52AM ; [facility] Review of Systems Review of Systems not [...] Subscriber Relationship Effect jerica Dates 1 - [facility] [id number] TERESA CALVIN Self Clinical Notes Includes: Signed Clinical Notes starting from 07/08/2022 No Clinical Notes Recorded
--- OUTSIDE RECORDS SUMMARY | 2025-06-17 19:01 | XMS_ITS ---
Care Plan - [facility] Created on: June 17, 2025 TERESA CALVIN : 1975 Sex: Female Author Organization [facility] Address [address] [place] [address] Phone Care Team Providers Care Tram Operator Name Role Phone MISAEL SANTOS DO Unavailable [phone]
--- OUTSIDE RECORDS SUMMARY | 2025-06-17 19:01 | XMS_ITS | Clinical Summary ---
Author Organization [facility] Address [address] [place] [address] Phone Care Team Providers Care Hedis Nurse Name Role Phone MISAEL SANTOS DO Unavailable [phone] Reason for Visit and Chief Complaint PELVIC W/TVT Plan of Treatment No Plan of Treatment Recorded Assessments Includes: Assessments from this encounter Findings - Benign endometrial hyperplasia - Last Documented On 04/19/2017 1:03PM ; [facility] Medical Equipment - Implanted Devices Includes: Current Devices No Medical Equipment Recorded Medications Includes: Medications discussed during this encounter and other current Medications Current Medications (continue as prescribed) Amoxicillin-Pot Clavulanate 875-125 MG Oral Tablet 06/14/2023 Provider: LOIS CARRASCO Diagnosis: Acute sinusitis, unspecified One tablet twice a day Last Documented On 10:52AM By Lois CARRASCO ; [facility] traZODone HCl 50 MG Oral Tablet 05/25/2023 Provider: ELZBIETA PRINCE MD Diagnosis: Last Documented On 06/14/2023 10:27AM By Francy Castillo ; [facility] Venlafaxine HCl ER 150 MG Or al Capsule Extended Release 24 Hour 04/06/2023 Provider: ELZBIETA PRINCE MD Diagnosis: Last Documented On 06/14/2023 10:27AM By Francy Castillo ; [facility] Atorvastatin Calcium 40MG Oral Tablet 10/20/2016 Pro vider: Diagnosis: Last Documented On 10/20/2016 8:39AM By YORDY NEGRON MA ; [facility] Lansoprazole 30MG Oral Capsule Delayed Release 017 Provider: Diagnosis: Last Documented On 10/20/2016 8:40AM By YORDY NEGRON MA ; [facility] Past Medications on file MedroxyPROGESTERone Acetate 10MG Oral Tablet 11/23/2016 - 01/22/2017 Provider: ROLAND BRUNO Diagnosis: Endometrial hyperplasia, unspecified One tablet daily ONE TAB DEBORAH LY FIRST 10 DAYS OF EACH MONTH WITH FOOD Last Documented On 7 3:00PM By ROLAND TATE-DAMION ; [facility] Medications Administered Includes: Administered Medications from this encounter No Administered Medications Recorded Results Includes: Results discussed during this encounter [facility] In c. Ordered by ROLAND BRUNO on 0 10/20/2016 Collected: 10/20/2016 Reported: 10/26/19 17 16:52 Last Documented On 7 8:16AM ; [facility] Reviewed by ROLAND BRUNO on 10/26/2016; All test results are final unless otherwise noted. FSH 45.0 mIU/mL N (Normal) Last Documented On 10/26/2016 8:16AM ; [facility] Note: Reference Range Follicular Phase 2.5-10.2 Mid-cycle Peak 3.1-17.7 Luteal Phase 1.5- 9.1 Postmenopausal 23.0-116.3 History of Present Illness Includes: History of Present Illness from this encounter No History of Present Illness Recorded Social History No Social History Recorded - Smoking Status Unknown Procedures and Surgical History Surgical History Last Updated History of tubal ligation 11/21/2016 Last Documented On 7 12:55PM ; [facility] Surgical / procedural histor y L5-S1 fusion ~C3-C4 fusion ~Arnold chiari decompression 10/20/2016 Last Documented On 7 12:55PM ; [facility] Medical History Includes: Medical History addressed during this encounter Description Last Updated Sexually active 11/21/2016 Last Documented On 7 12:55PM ; [facility] History of Pap smear done 10/20/2016 06/0 10/2016 Last Documented On 7 12:55PM ; [facility] LMP: 201411/21/2016 Last Documented On 7 12:55PM ; [facility] Result: abnormal (+)HPV 11/21/2016 Last Documented On 7 12:55PM ; [facility] History of chronic reflux esophagitis Last Documented On 7 12:55PM ; [facility] History of hyperlipidemia 10/20/2016 Last Documented On 7 12:55PM ; [facility] ACM type 1 10/20/2016 Last Documented On 7 12:55PM ; [facility] Aborta 2 10/20/2016 Last Documented On 7 12:55PM ; [facility] 4 10/20/2016 Last Documented On 7 12:55PM ; [facility] Para 2 10/20/2016 Last Documented On 7 12:55PM ; [facility] Status post tubal ligation 10/20/2016 Last Documented On 7 12:55PM ; [facility] Family History Includes: Family History addressed during this encounter Description Last Updated Maternal aunt's history of malignant fem adelina breast neoplasm Mat Aunt 10/20/2016 Last Documented On 7 12:55PM ; [facility] Maternal history of diabetes mellitus Mo ther and father 10/20/2016 Last Documented On 7 12:55PM ; [facility] Review of Systems Includes: Review of Systems [...] Diagnosis PELVIC W/TVT ROLAND HOOK RN WHNP [facility] CNC MILLING MACHINIST 04/18/20 17 8:14AM 8:53AM Endometrial Hyperplasia - Benign Insurance Includes: Active Insurance Policies Plan Name Member ID Group # Subscriber Relationship Effect jerica Dates 1 - [facility] [id number] TERESA CALVIN Self Clinical Notes Includes: Clinical Notes from this encounter No Clinical Notes Recorded
--- OUTSIDE RECORDS SUMMARY | 2025-06-17 19:01 | XMS_ITS | Clinical Summary ---
Author Organization [facility] Address [address] [place] [address] Phone Care Team Providers Care Warehouse Packer Name Role Phone MISAEL SANTOS DO Unavailable [phone] Reason for Visit and Chief [...] Documented On 10:52AM By Lois CARRASCO ; [facility] traZODone HCl 50 MG Oral Tablet 05/25/2023 Provider: ELZBIETA PRINCE MD Diagnosis: Last Documented On 06/14/2023 10:27AM By Francy Castillo ; [facility] Venlafaxine HCl ER 150 MG Or al Capsule Extended Release 24 Hour 04/06/2023 Provider: ELZBIETA PRINCE MD Diagnosis: Last Documented On 06/14/2023 10:27AM By Francy Castillo ; [facility] Atorvastatin Calcium 40MG Oral Tablet 10/20/2016 Pro vider: Diagnosis: Last Documented On 10/20/2016 8:39AM By YORDY NEGRON MA ; [facility] Lansoprazole 30MG Oral Capsule Delayed Release 017 Provider: Diagnosis: Last Documented On 10/20/2016 8:40AM By YORDY NEGRON MA ; [facility] Medications Administered Includes: Administered [...] [Patient Encounter] ROLAND HOOK RN ANA CRISTINA [facility] [employer] 8 3:46PM 11:59PM Insurance Includes: Active Insurance Policies Plan Name Member ID Group # Subscriber Relationship Effect jerica Dates 1 - [facility] [id number] TERESA CALVIN Self Clinical Notes Includes: Clinical Notes from this encounter No Clinical Notes Recorded
--- OUTSIDE RECORDS SUMMARY | 2025-06-17 19:01 | XMS_ITS | Clinical Summary ---
Author Organization [facility] Address [address] [place] [address] Phone Care Team Providers Care Radio Communication Coordinator Name Role Phone MISAEL SANTOS DO Unavailable [phone] Reason for Visit and Chief [...] - Last Documented On 05/10/2020 3:08PM ; [facility] - Watch for signs/symptoms of infection, return to the clinic if seen - Last Documented On 05/10/2020 3:08PM ; [facility] Patient is to quarantine for 14 days past last exposure OTC medication for fever and/or bodyaches Call clinic for worsening symptoms or concerns Go to ED for severe difficulty breathing or lethargy Take medication as directed. Saline nasal spray to help with congestion. - Last Documented On 05/10/2020 3:08PM ; [facility] Instructions to patient Watch for signs/symptoms of infection, return to the clinic if seen Last Documented On 0 3:02PM ; [facility] Assessments Includes: Assessments from this encounter Findings - Exposure to a viral disease - Last Documented On 05/10/2020 3:08PM ; [facility] - Acute sinusitis - Last Documented On 05/10/2020 3:08PM ; [facility] Instructions Includes: Instructions from this encounter Instructions to patient Watch for signs/symptoms of infection, return to the clinic if seen Last Documented On 0 3:02PM ; [facility] Medical Equipment - Implanted Devices Includes: Current Devices No Medical Equipment Recorded Medications Includes: Medications discussed during this encounter and other current Medications New / Renewed during this visit MARCELA CARRASCO on 05/10/2020 Doxycycline Hyclate 100 MG Oral Tablet Provider: MARCELA Eckert 10 day supply: 20 tablet, 0 refills Diagnosis: Acute frontal sinusitis, unspecified One tablet twice a day Pharmacy: [address] [address] - Last Documented On 3 10:44AM By Lois CARRASCO ; [facility] Current Medications (continue as prescribed) Amoxicillin-Pot Clavulanate 875-125 MG Oral Tablet 06/14/2023 Provider: LOIS CARRASCO Diagnosis: Acute sinusitis, unspecified One tablet twice a day Last Documented On 3 10:52AM By Lois CARRASCO ; [facility] traZODone HCl 50 MG Oral Tablet 05/25/2023 Provider: ELZBIETA PRINCE MD Diagnosis: Last Documented On 06/14/2023 10:27AM By Francy Castillo ; [facility] Venlafaxine HCl ER 150 MG Or al Capsule Extended Release 24 Hour 04/06/2023 Provider: ELZBIETA PRINCE MD Diagnosis: Last Documented On 06/14/2023 10:27AM By Francy Castillo ; [facility] Atorvastatin Calcium 40MG Oral Tablet 10/20/2016 Pro vider: Diagnosis: Last Documented On 10/20/2016 8:39AM By YORDY NEGRON MA ; [facility] Lansoprazole 30MG Oral Capsule Delayed Release 017 Provider: Diagnosis: Last Documented On 10/20/2016 8:40AM By YORDY NEGRON MA ; [facility] Past Medications on file MedroxyPROGESTERone Acetate 10MG Oral Tablet 11/23/2016 - 01/22/2017 Provider: ROLAND TATE BC Diagnosis: Endometrial hyperplasia, unspecified One tablet daily ONE TAB DEBORAH LY FIRST 10 DAYS OF EACH MONTH WITH FOOD Last Documented On 7 3:00PM [facility] ; [facility] Medications Administered Includes: Administered Medications from this encounter No Administered Medications Recorded Vital Signs Includes: Vital Signs from this encounter Vital Name 05/10/2020 02:48P Pulse Rate-Sitting (bpm) 94 Temp-Oral (F) 98.4 Oxygen Saturation (%) 96 Last Documented: On 05/10/2020 2:50PM ; [facility] Results Includes: Results discussed during this encounter Rapid COVID Test [facility] Ordered by MARCELA CARRASCO on Collected: Reported: 05/10/2020 14:55 Last Documented On 0 2:56PM ; [facility] Reviewed on 05/10/2020; All test results are final unless otherwise noted. Rapid COVId neg N (Normal) Last Documented On 0 2:55PM ; [facility] Int. QC Acceptable yes N (Normal) Last Documented On 0 2:55PM ; [facility] Lot # and Exp. Date [id number] 09/03/20 N (Normal) Last Documented On 0 2:55PM ; [facility] History of Present Illness Includes: History [...] 05/10/2020 Last Documented On 0 3:08PM ; [facility] Smoking Status Unknown Medical History Includes: Medical History addressed during this encounter Description Last Updated Exposure to a contagious disease 020 Last Documented On 0 3:08PM ; [facility] Family History Includes: Family History addressed [...] Check-Out Time Diagnosis SICK VISIT MARCELA CEDILLO SINGLE SPINDLE SCREW MACHINE OPERATOR-C [facility] 0 2:15PM 3:01PM Exposure To Contagious Viral Disease,Sinusi tis Acute Insurance Includes: Active Insurance Policies Plan Name Member ID Group # Subscriber Relationship Effect jerica Dates 1 - [facility] [id number] TERESA CALVIN Self Clinical Notes Includes: Clinical Notes from this encounter No Clinical Notes Recorded
--- OUTSIDE RECORDS SUMMARY | 2025-06-17 19:02 | XMS_ITS | Clinical Summary ---
Author Organization [facility] Address [address] [place] [address] Phone Care Team Providers Care Off Premise Service Representative Name Role Phone MISAEL SANTOS DO Unavailable [phone] Reason for Visit and Chief Complaint CHART UPDATE Plan of Treatment Pending Tests Order Diagnosis Results Due Ordering P rorosalba U/S @ [facility] - OB or JV U/S PTVT Benign endometrial hyperplasia 04/11/17 ROLAND HOOK RN [facility] Last Documented On 7 11:04AM ; [facility] Assessments Includes: Assessments from this encounter No [...] Documented On 10:52AM By Lois CARRASCO ; [facility] traZODone HCl 50 MG Oral Tablet 05/25/2023 Provider: ELZBIETA PRINCE MD Diagnosis: Last Documented On 06/14/2023 10:27AM By Francy Castillo ; [facility] Venlafaxine HCl ER 150 MG Or al Capsule Extended Release 24 Hour 04/06/2023 Provider: ELZBIETA PRINCE MD Diagnosis: Last Documented On 06/14/2023 10:27AM By Francy Castillo ; [facility] Atorvastatin Calcium 40MG Oral Tablet 10/20/2016 Pro vider: Diagnosis: Last Documented On 10/20/2016 8:39AM By YORDY NEGRON MA ; [facility] Lansoprazole 30MG Oral Capsule Delayed Release 017 Provider: Diagnosis: Last Documented On 10/20/2016 8:40AM By YORDY NEGRON MA ; [facility] Past Medications on file MedroxyPROGESTERone Acetate 10MG Oral Tablet 11/23/2016 - 01/22/2017 Provider: ROLAND HOOK RN A[facility] CRISTINA BC Diagnosis: Endometrial hyperplasia, unspecified One tablet daily ONE TAB DEBORAH LY FIRST 10 DAYS OF EACH MONTH WITH FOOD Last Documented On 7 3:00PM By ROLAND HOOK ANA CRISTINA- ; [facility] Medications Administered Includes: Administered [...] tubal ligation 11/21/2016 Last Documented On 7 8:04AM ; [facility] Surgical / procedural histor y L5-S1 fusion ~C3-C4 fusion ~Arnold chiari decompression 10/20/2016 Last Documented On 7 8:04AM ; [facility] Medical History Includes: Medical History addressed during this encounter Description Last Updated Sexually active 11/21/2016 Last Documented On 7 8:04AM ; [facility] History of Pap smear done 10/20/2016 06/0 10/2016 Last Documented On 7 8:04AM ; [facility] LMP: 2015 11/21/2016 Last Documented On 7 8:04AM ; [facility] Result: abnormal (+)HPV 11/21/2016 Last Documented On 7 8:04AM ; [facility] History of chronic reflux esophagitis Last Documented On 7 8:04AM ; [facility] History of hyperlipidemia 10/20/2016 Last Documented On 7 8:04AM ; [facility] ACM type 1 10/20/2016 Last Documented On 7 8:04AM ; [facility] Aborta 2 10/20/2016 Last Documented On 7 8:04AM ; [facility] 4 10/20/2016 Last Documented On 7 8:04AM ; [facility] Para 2 10/20/2016 Last Documented On 7 8:04AM ; [facility] Status post tubal ligation 10/20/2016 Last Documented On 7 8:04AM ; [facility] Family History Includes: Family History addressed during this encounter Description Last Updated Maternal aunt's history of malignant fem adelina breast neoplasm Mat Aunt 10/20/2016 Last Documented On 7 8:04AM ; [facility] Maternal history of diabetes mellitus Mo ther and father 10/20/2016 Last Documented On 7 8:04AM ; [facility] Review of Systems Includes: Review [...] Location Date Check-In Time Check-Out Time Diagnosis CHART UPDATE ROLAND HOOK RN [facility] CRANE SERVICE TECHNICIAN 7 8:00AM 11:59PM Insurance Includes: Active Insurance Policies Plan Name Member ID Group # Subscriber Relationship Effect jerica Dates 1 - [facility] [id number] TERESA CALVIN Self Clinical Notes Includes: Clinical Notes from this encounter No Clinical Notes Recorded
--- OUTSIDE RECORDS SUMMARY | 2025-06-17 19:02 | XMS_ITS | Clinical Summary ---
Author Organization [facility] Address [address] [place] [address] Phone Care Team Providers Care Hand Mexican Food Maker Name Role Phone MISAEL SANTOS DO Unavailable [phone] Reason for Visit and Chief Complaint The Chief Complaint is: Sinus issues. back pain eye drainage. FOR ABOUT A WEEK WITH CONGESTION, COUGH, DRAINAGE IN BACK OF THROAT, SOB, HEADACHE, RUNNY NOSE Plan of Treatment - Return to the clinic if condition worsens or new symptoms arise - Last Documented On 06/14/2023 10:47AM ; [facility] - Patient to call if problem develops - Last Documented On 06/14/2023 10:47AM ; [facility] Assessments Includes: Assessments from this encounter Findings - Cough [R05.1 - Acute cough] - Last Documented On 06/14/2023 10:47AM ; [facility] - Acute sinusitis [J01.90 - Acute sinusitis, unspecified] - Last Documented On 06/14/2023 10:47AM ; [facility] Medical Equipment - Implanted Devices Includes: Current Devices No Medical Equipment Recorded Medications Includes: Medications discussed during this encounter and other current Medications Discontinued / Stopped on this date MARCELA CARRASCO on 05/10/2020 Doxycycline Hyclate 100 MG Oral Tablet Provider: MARCELA Eckert Diagnosis: Acute frontal si nusitis, unspecified Last Documented On 10:44AM By Lois CARRASCO ; [facility] New / Renewed during this visit LOIS CARRASCO on 06/14/2023 Amoxicillin-Pot Clavulanate 875-125 MG Oral Tablet Provider: LOIS EUBANKS-C 10 day supply: 20 tablet, 0 refills Diagnosis: Acute sinusitis, unspecified One tablet twice a day Pharmacy: [address], [address] - Last Documented On 10:52AM By Lois CARRASCO ; [facility] Current Medications (continue as prescribed) traZODone HCl 50 MG Oral Tablet 05/25/2023 Provider: ELZBIETA PRINCE MD Diagnosis: Last Documented On 06/14/2023 10:27AM By Francy Castillo ; [facility] Venlafaxine HCl ER 150 MG Or al Capsule Extended Release 24 Hour 04/06/2023 Provider: ELZBIETA PRINCE MD Diagnosis: Last Documented On 06/14/2023 10:27AM By Francy Castillo ; [facility] Atorvastatin Calcium 40MG Oral Tablet 10/20/2016 Pro vider: Diagnosis: Last Documented On 10/20/2016 8:39AM By YORDY NEGRON MA ; [facility] Lansoprazole 30MG Oral Capsule Delayed Release 017 Provider: Diagnosis: Last Documented On 10/20/2016 8:40AM By YORDY NEGRON MA ; [facility] Past Medications on file MedroxyPROGESTERone Acetate 10MG Oral Tablet 11/23/2016 - 01/22/2017 Provider: ROLAND HOOK RN ANA CRISTINA Diagnosis: Endometrial hyperplasia, unspecified One tablet daily ONE TAB DEBORAH LY FIRST 10 DAYS OF EACH MONTH WITH FOOD Last Documented On 7 3:00PM By ROLAND HOOK ANA CRISTINA- ; [facility] Medications Administered Includes: Administered Medications from this encounter No Administered Medications Recorded Vital Signs Includes: Vital Signs from this encounter Vital Name 06/14/2023 10:29A Pulse Rate-Sitting (bpm) 75 Respiration Rate (breaths/min) 21 Temp-Oral (F) 98.2 Height (in) 64.75 Weight (lb) 230.375 Body Mass Index 38.6 Body Surface Area 2.1 Oxygen Saturation (%) 98 Last Documented: On 06/14/2023 10:30A M ; [facility] Results Includes: Results discussed during this encounter SARS COVID-19 FLU A & B [facility] Ordered by LOIS EUBANKS-Maryann on 08/15/2022 Collected: Reported: 06/14/2023 Last Documented On 3 10:45AM ; [facility] Reviewed on 06/14/2023; All test results are final unless otherwise noted. COVID NEG N (Normal) Last Documented On 3 10:45AM ; [facility] INFLUENZA A NEG (Negative) N (Normal) Last Documented On 3 10:45AM ; [facility] INFLUENZA B NEG (negative) N (Normal) Last Documented On 3 10:45AM ; [facility] INT. QC ACCEPTABLE? YES N (Normal) Last Documented On 3 10:45AM ; [facility] LOT # & EXP. DATE [id number] 04-19-24 N (Normal) Last Documented On 3 10:45AM ; [facility] History of Present Illness Includes: History of [...] 06/14/2023 Last Documented On 3 10:47AM ; [facility] Smoking Status Unknown Procedures and Surgical History Includes: Procedures from this encounter Procedures Code Diagnosis Performing Provider Service L ocation Service Date the options include decongestants Last Documented On 3 10:47AM ; [facility] the options include antihist amines such as claritin/zyrtec/josefina as needed per product instructions Last Documented On 3 10:43AM ; [facility] plan of care reviewed and agreed to Last Documented On 3 10:43AM ; [facility] patient to call if symptoms worsen or not improved in 5-7 days to update patient's status Last Documented On 3 10:43AM ; [facility] use of tobacco assessment performed 1000F Last Documented On 3 10:29AM ; [facility] review of medications documented 1160F Last Documented On 3 10:29AM ; [facility] Clinical summary provided to patient Last Documented On 3 10:43AM ; [facility] Medical History Includes: Medical History addressed during this encounter Description Last Updated Date COVID symptoms started: 06/09/2023 06/14/2023 Last Documented On 3 10:47AM ; [facility] No Contact with and (Suspected) exposure to COVID-19 06/14/2023 Last Documented On 3 10:47AM ; [facility] No fall 06/14/2023 Last Documented On 3 10:47AM ; [facility] Family History Includes: Family [...] COVID SICK VISIT- ESTABLISHED PATIENT LOIS LOERA JOB RECRUITER-C [facility] 06/14/20 23 10:19AM 10:42AM Sinusitis Acute,Assessm ent of Cough Insurance Includes: Active Insurance Policies Plan Name Member ID Group # Subscriber Relationship Effect jerica Dates 1 - [facility] [id number] TERESA Missael CALVIN Self Clinical Notes Includes: Clinical Notes from this encounter * Progress note Date Encounter Last Documented by 06/14/2023 COVID SICK VISIT- ESTABLISHED JOSE ALEJANDRO OCHOA Last documented on 06/14/2023; 10:47 AM, LOIS LOERA JOB RECRUITER-C; [facility] Chief Complaint The Chief [...] YES Normal LOT # & EXP. DATE [id number] 04-19-24 Normal Assessment - Cough [R05.1 - [...]
[2025-06-17 19:08] VITALS: BP 143/88; PULSE 80; RESP 18; TEMP 36.3; O2SAT 100
--- NOTE | 2025-06-17 19:15 | ED.URI ---
HPI - URI/Sore Throat General Chief Complaint: Upper Respiratory Infection Stated Complaint: cough/ears Time Seen by Provider: 06/17/25 19:15 Source: patient, RN notes reviewed and old records reviewed Mode of arrival: ambulatory Limitations: no limitations History of Present Illness HPI Narrative: 50-year-old female presents to the [facility] with 2 weeks of cough, congestion. States that she has used her Navage and has help with her sinus congestion. Otherwise cough and congestion. Denies chest pain shortness of breath. Denies fevers. Treatments prior to arrival: cold medicine Related Data Home Medications ?Medication ?Instructions ?Recorded ?Confirmed ?Last Taken ?Type Vitamin D3 1 cap PO DAILY 01/02/24 03/22/24 03/22/24 History ascorbic acid (vitamin C) 1 gummy PO DAILY 01/02/24 03/22/24 03/22/24 History coQ10 (ubiquinol) 1 cap PO DAILY 01/02/24 03/22/24 03/22/24 History esomeprazole magnesium 40 mg 40 mg PO BID 01/02/24 03/22/24 03/22/24 History capsule,delayed release (Nexium) multivitamin 1 tablet PO DAILY 01/02/24 03/22/24 03/22/24 History rosuvastatin 40 mg tablet 40 mg PO HS 01/02/24 03/22/24 03/22/24 History trazodone 50 mg tablet 50 mg PO HS 01/02/24 03/22/24 03/21/24 History venlafaxine 150 mg 150 mg PO DAILY 01/02/24 03/22/24 03/22/24 History capsule,extended release 24 hr zinc 50 mg tablet 50 mg PO DAILY 01/02/24 03/22/24 03/22/24 History ferrous sulfate 325 mg (65 mg mg 06/17/25 Unknown History iron) tablet Allergies Allergy/AdvReac Type Severity Reaction Status Date / Time No Known Allergies Allergy Unknown Verified 06/17/25 19:12 Review of Systems Review of Systems: All systems reviewed & are unremarkable except as noted in HPI and below Constitutional: Constitutional: Reports as per HPI ENT: Reports as per HPI Cardiovascular: Cardiovascular: Reports no additional cardiovascular complaints, Denies chest pain and Denies dyspnea Respiratory: Respiratory: Reports as per HPI, Reports chest congestion, Reports cough and Denies dyspnea Musculoskeletal: Musculoskeletal: Reports no additional musculoskeletal complaints Integumentary/Breasts: Skin/Breast: Reports system reviewed and no additional complaints, except as docu PMFSH Family History Family History Mother Diabetes mellitus Hypertension Family history of elevated blood lipids Family history of mental disorder Depression Family history of diabetes mellitus in first degree relative Father Hypertension Family history of elevated blood lipids Other Family history of Alzheimer's disease Family history of allergic disorder Family history of malignant neoplasm Family history of peptic ulcer Social History Social History Smoking packs per day: 1 Smoking cigarettes per day: 20.0 Years smoked: 25 Smoking pack-years: 25.00 Smoking status: Current every day smoker Tobacco type: cigarettes Alcohol intake: never Substance use: never Substance use type: does not use Living arrangements: with family Spiritual care concerns: No Comments At the time of my signature, I reviewed and agree with the nursing past medical, surgical, social, and family history. There is no relevant family history pertinent to the patient complaint. Exam Const: General: cooperative, healthy appearing, comfortable, no acute distress, well developed, alert and well nourished Nutritional Appearance: well nourished and obese Orientation/consciousness: patient oriented x3 Limitations: no limitations HENMT: Head: normal to inspection Ears: hearing grossly normal bilaterally, external ears normal, TM's normal bilaterally, EAC's normal, mastoids normal and no periauricular adenopathy Face and sinus: normal facial exam, sinuses nontender and face symmetric Mouth: Yes Normal oral and palatal mucosa present, Yes lip normal, Yes tongue normal and Yes moist mucous membranes Throat: posterior oropharynx normal, uvula midline and no uvular edema Eyes: General: appearance normal, both eyes and all related structures Alignment and Position: alignment normal Neck: Neck: normal visual inspection, full ROM, no lymphadenopathy and no meningeal signs Chest: Chest palpation & inspection: normal inspection of the chest Resp: Effort & Inspection: normal respiratory effort and able to speak in complete sentences Auscultation: no crackles, no rales, no rhonchi and wheezes Cardio: Rate: regular rate Skin: General skin exam: normal color and no rashes or lesions noted Neuro: General: patient oriented x3, gait normal, moves all extremities and no meningeal signs Cognition (Neuro): normal cognition Speech: normal speech Gait exam (Neuro): Normal gait present Extrem: General: normal to inspection, full ROM, capillary refill normal and normal gait Psych: Appearance: grossly normal and well kempt Mental Status: mental status grossly normal Speech and movement: Normal speech and movement present and Clear speech present Affect: normal affect Attitude: cooperative Course Course Level of Care: Express Care Visit Vital Signs Vital signs: Vital Signs Temperature 97.4 F L 06/17/25 19:08 Pulse Rate 80 06/17/25 19:08 Respiratory Rate 18 06/17/25 19:08 Blood Pressure 143/88 H 06/17/25 19:08 Pulse Oximetry 100 06/17/25 19:08 Oxygen Delivery Room Air 06/17/25 19:08 Temperature 97.4 F L 06/17/25 19:08 Pulse Rate 80 06/17/25 19:08 Respiratory Rate 18 06/17/25 19:08 Blood Pressure 143/88 H 06/17/25 19:08 Pulse Oximetry 100 06/17/25 19:08 Oxygen Delivery Room Air 06/17/25 19:08 reviewed [facility] Narrative Medical decision making narrative: Patient sitting comfortably in exam room. Patient is nontoxic, vitals stable. Patient presents with URI symptoms for 2 weeks. Patient presents with 2 weeks, patient is encouraged to use [id number] products. Patient will prescribe doxycycline. Will prescribe albuterol for wheeze. Discharge instructions reviewed with patient, as well as provided in writing per nursing staff. The instructions also include specific and strict return/GO TO THE ER as well as f/u information. All questions have been answered, and the patient deny any further questions with discharge and discharge plan. Some parts of this dictation were generated by voice recognition software and may contain typographical and/or grammatical inaccuracies. Differential Diagnosis Differential Diagnosis: Differential diagnostic considerations for upper respiratory infection include upper respiratory infection, croup, otitis media, sinusitis, viral infection, bronchitis, influenza, pharyngitis, strep, uvulitis.? Lab Data [facility] Lab Attestation statement: I personally reviewed the patient's lab results. Labs: Reviewed Discharge Plan Discharge Clinical Impression: Sinusitis, Bronchitis Patient Disposition: Home Condition: Stable Instructions: Antibiotic Form, Sinusitis (ED), Acute Bronchitis (ED) Additional Instructions: It is very important to treat your symptoms. Drink plenty of water, Gatorade, Pedialyte, ice pops or Jell-O. -Alternate Tylenol and Motrin per package directions for fever or pain. You can alternate every 4 hours -Antihistamine medication such as Zyrtec/Claritin/Donna during the day can help improve symptoms. -doing daily nasal irrigations can help relieve pressure your sinuses. Things like a Neti pot -Use Flonase twice a day for 5 days then daily to help reduce the inflammation and dry up your sinuses. -You can also use Mucinex. Be sure to drink plenty of water with this medication at least 8 ounces with every dose and it is important to drink 8 to 10 glasses of water per day. Water is a natural decongestant -Eat and drink things that are easy to swallow, like tea or soup, or popsicles. -Oral rinses such as: Salt water gargles and/or may use topical anesthetic (eg. Chloraseptic spray) or lozenges to relieve dryness or throat pain). -Frequent hand washing or hand real estate assistant is one of the best ways to prevent spread of infection. -Using a vaporizer or humidifier at night will also help thin secretions and help with coughing up phlegm. -Follow up with primary care provider in 7-10 days if condition is not improving - For new or worsening symptoms go directly to the nearest ER Patient Language: Turkish Prescriptions: New (DME) Aerochamber MV Spacer See Rx Instructions .Route Qty: 1 0RF Rx Instructions: As directed albuterol sulfate 90 mcg/actuation HFA aerosol inhaler 2 puff inhalation QID PRN (Reason: shortness of breath or wheezing) Qty: 6.7 0RF doxycycline monohydrate 100 mg tablet 100 mg PO BID Qty: 14 0RF No Action ferrous sulfate 325 mg (65 mg iron) tablet multivitamin Tablet 1 tablet PO DAILY trazodone 50 mg tablet 50 mg PO HS venlafaxine 150 mg capsule,extended release 24hr 150 mg PO DAILY esomeprazole magnesium [Nexium] 40 mg Capsule,Delayed Release(Dr/Ec) 40 mg PO BID zinc 50 mg Tablet 50 mg PO DAILY rosuvastatin 40 mg tablet 40 mg PO HS Vitamin D3 1 cap PO DAILY ascorbic acid (vitamin C) 1 gummy PO DAILY coQ10 (ubiquinol) 1 cap PO DAILY Follow-up/Referrals: PHYSICIAN NOT ON STAFF,NONSTAFF [Primary Care Provider] Stand Alone Forms: Work/School Release IP Time of Disposition: 19:22
== END 2025-06-17 19:25 | disposition home or self-care (01) ==
PROVIDERS: Emergency Provider Nurse Practitioner
DX: J32.9 Chronic sinusitis, unspecified (principal); J40 Bronchitis, not specified as acute or chronic; F17.210 Nicotine dependence, cigarettes, uncomplicated; E78.00 Pure hypercholesterolemia, unspecified; G47.30 Sleep apnea, unspecified; K21.9 Gastro-esophageal reflux disease without esophagitis; F41.9 Anxiety disorder, unspecified; F32.A Depression, unspecified
CPT/HCPCS: 99213; G0463